=== PATIENT | male | born 1940 | race Caucasian/White ===

== ENCOUNTER → 2025-05-11 | Outpatient (CLI) | payer SELFPAY, OTHER ==
--- NOTE | 2025-05-11 09:00 | PET_ITS ---
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 A preliminary CT study encompassing the Skull base, neck, chest, abdomen, pelvis, and proximal thighs was performed for purposes of attenuation correction and anatomic localization. The proximal thighs were also included. The patient's blood glucose level was 74 mg/dL (allowable range: 50-180 mg/dL). RADIOPHARMACEUTICAL: 13.64 mCi 18F-FDG (Fluorodeoxyglucose F18) IV was injected into he patient. RADIATION DOSE SUMMARY: Effective Dose: Approximately 7 mSv for a standard whole-body PET scan Organ Doses: Varies by organ, with higher doses typically to the bladder, liver, and brain COMPARISON: COMPARISON FROM CT, PET OR OTHER PERTINENT EXAMS: None provided.. FINDINGS: Physiologic uptake: There may be expected metabolic uptake within the brain, tongue and floor of the mouth and larynx/vocal cords, heart, hannah (many normal individuals have hilar uptake in less than 3 nodes with mildly avid hilar nodes less than 2.7 SUV), liver and spleen, system, and GI tract and symmetric muscle uptake. FDG AVID AND NON-AVID LESIONS. Reported avid SUV values (g/mL*) are maximum SUV. NECK: There are no significant neck abnormalities. CHEST: Chest wall- There are no significant chest wall abnormalities. Axilla- There are no significant axillary abnormalities. Lung parenchyma- There are no significant lung parenchyma abnormalities. Mediastinum- There are no significant hilar or mediastinal adenopathy. Pleura- There are no significant pleural abnormalities. Moderate aortic valve calcification is seen. ABDOMEN: A large hypermetabolic mass is seen in the central to right abdomen, measured at approximately 8.0 x 11.6 cm, with SUV max of 14.0. This is highly concerning for malignancy. Also, likely lymph node in the posterior abdominal cavity adjacent (centered on axial image 149) shows hypermetabolic activity and SUV max of 4.0, consistent with associated malignant adenopathy. Stomach- No significant abnormalities. Liver- No significant abnormalities. Spleen- No significant abnormalities. Pancrease- No significant abnormalities. Kidneys- No significant abnormalities. Spine- No significant abnormalities. Mild arterial calcification is otherwise noted; no evidence of abdominal aortic aneurysm. PELVIS: Bowel- Normal physiologic bowel activity is identified. Masses- There are no pelvic masses. Bones- Prominent degenerative changes of the spine are seen, along with thoracic kyphosis. With the use of bone window settings, there are no osteolytic or osteoblastic lesions. There are no FDG avid lesions within the visualized portion of the axial skeleton. PET/PET/CT Tumor Base -Thigh Init IMPRESSION: FDG avid- Large hypermetabolic central to right abdominal mass, highly concerning for mal ignancy. Nearby hypermetabolic lymph known consist with malignant adenopathy. Other: 1. Prominent degenerative changes of the spine, along with thoracic kyphosis. 2. Moderate aortic valve calcification. Please note the low-dose CT scan was performed to facilitate PET image reconstr uction and anatomic localization and does not replace a diagnostic CT. Any diagnostic CT requested and performed at the time of the PET will be reported separately. Reading Location: [address]
--- OUTSIDE RECORDS SUMMARY | 2025-05-11 09:28 | XMS RPT_ITS | CCD ---
Author Organization [facility] Care Team Providers Care Vc++ Developer Name Role Phone Butron JUARES MD Unavailable ENT, JASMIN Unavailable BERLIN Unavailable Unavailable Nitish THOMAS, Esthela Unavailable Unavailable PABLO SCHAFER, TIFFANIE Velazquez Unavailable XIOMY PIÑA Unavailable Unavailable CAMMIE NOVA Unavailable Unavailable MILLIE SCHAFER, ASHELY Sheikh Unavailable Katie Woods RN Unavailable Unavailable Unavailable Unavailable EDUARD PIÑA MD Unavailable JANAY BAUTISTA Attending Unavailable JANAY BAUTISTA Admitting Unavailable JANAY BAUTISTA Primary Care Unavailable Burton JUARES Consulting Unavailable PROVIDER, UNKNOWN Consulting Unavailable PROVIDER, UNKNOWN Consulting Unavailable PROVIDER, UNKNOWN Consulting Unavailable JANAY BAUTISTA Admitting Unavailable JANAY BAUTISTA Primary Care Unavailable JANAY BAUTISTA Attending Unavailable Burton JUARES Consulting Unavailable PROVIDER, UNKNOWN Consulting Unavailable PROVIDER, UNKNOWN Consulting Unavailable PROVIDER, UNKNOWN Consulting Unavailable PACHECO SAWANT DC Primary Care Unavailable PACHECO SAWANT DC Attending Unavailable PACHECO SAWANT DC Admitting Unavailable JAYME COELHO DPM Primary Care Unavailable JAYME COELHO DPM Attending Unavailable JAYME COELHO DPM Admitting Unavailable JAYME COELHO DPM Primary Care Unavailable JAYME COELHO DPM Attending Unavailable JAYME COELHO DPM Admitting Unavailable KORNHAUS, R TIFFANIE Primary Care Unavailable Burton JUARES Attending Unavailable KORJUNEAUS, R TIFFANIE Admitting Unavailable KORNHAUS, R TIFFANIE Primary Care Unavailable Burton JUARES Attending Unavailable KORNHAUS, R TIFFANIE Admitting Unavailable KORNHAUS, R TIFFANIE Attending Unavailable KORNHAUS, Burton MORENO Primary Care Unavailable MOR, Burton MORENO Admitting Unavailable MOR, Burton MORENO Primary Care Unavailable AMYJUNEPASQUALE, Burton MORENO Attending Unavailable MOR, R TIFFANIE Admitting Unavailable MOR, R TIFFANIE Primary Care Unavailable AMYJUNEPASQUALE, Burton MORENO Attending Unavailable AMYVARINDER, R TIFFANIE Admitting Unavailable JANAY BAUTISTA Attending Unavailable JANAY BAUTISTA Admitting Unavailable JANAY BAUTISTA Primary Care Unavailable MOR, Burton TIFFANIE Primary Care Unavailable AMYVARINDER, Burton MORENO Attending Unavailable MOR, Burton MORENO Admitting Unavailable Janay Bautista Referring Unavailable Janay Bautista Attending Unavailable Medications Current Medications Medication Drug Class(es) Dates Sig (Normalized) Sig (Original) CAYENNE FRUIT, 455MG (Oral Capsule) (20 sources) take 1 capsule by mouth once daily CAYENNE FRUIT, 455MG (Oral Capsule) ; 1 daily (455 MG) cranberry preparation 200 mg oral capsule (20 sources) Non-Standardized Food Allergenic Extract, Non-Standardized Plant Allergenic Extract take 1 capsule by mouth once daily Cranberry 200 MG Oral Capsule ; 1 daily (200 MG) Garlic preparation (20 sources) Non-Standardized Food Allergenic Extract take 1 capsule by mouth once daily GARLIC 1500, 1500MG (Oral Capsule) ; 1 daily (1500 MG) Problems Active Problems Problem Classification Problem Date Documented Da te Episodic/Chronic Administrative/social admission (20 sources) Patient encounter status; Translations: [Counseling, unspecified] 03-16-2025 Episodic Deficiency and other anemia (20 sources) Anemia; Translations: [Anemia, unspecified] 03-22-2025 Episodic Deficiency and other anemia (3 sources) Anemia, unspecified; Translations: [Anemia, unspecified] Onset: 5 Episodic Diverticulosis and diverticulitis (20 sources) Diverticulosis of colon (without mention of hemorrhage) Onset: 1 11-29-2011 Chronic Open wounds of head; neck; and trunk (20 sources) Laceration of cheek; Translations: [Laceration without foreign body of right cheek and temporomandibular area, initial encounter] 09-02-2017 Episodic Comment on above: healing. Other connective tissue disease (3 sources) Pain in left leg; Translations: [Pain in left leg] Onset: 5 Episodic Other diseases of kidney and ureters (20 sources) Cyst of kidney; Translations: [Cyst of kidney, acquired] Onset: 1 11-29-2011 Episodic Other gastrointestinal disorders (20 sources) Diarrhea of presumed infectious origin; Translations: [Diarrhea, unspecified] 03-16-2025 Episodic Other gastrointestinal disorders (11 sources) Other specified diseases of intestine; Translations: [Other specified disorders of intestine] Onset: 5 04-06-2025 Episodic Other gastrointestinal disorders (1 source) Intra-abdominal and pelvic swelling, mass and lump, unspecified site; Translations: [Intra-abdominal and pelvic swelling, mass and lump, unspecified site] Onset: 5 Episodic Other gastrointestinal disorders (3 sources) Diarrhea, unspecified; Translations: [Diarrhea, unspecified] Onset: 5 Episodic Other injuries and conditions due to external causes (20 sources) At risk for falls ; Translations: [History of falling] 09-02-2017 Episodic Other male genital disorders (20 sources) H/O: male genital disorder; Translations: [Personal history of other diseases of male genital organs] Onset: 1 09-02-2017 Episodic Comment on above: Stable. Other nutritional; endocrine; and metabolic disorders (20 sources) Weight decreased; Translations: [Abnormal weight loss] 03-16-2025 Episodic Other nutritional; endocrine; and metabolic disorders (3 sources) Abnormal weight loss; Translations: [Abnormal weight loss] Onset: 5 Episodic Other screening for suspected conditions (not mental disorders or infectious disease) (20 sources) Screening status; Translations: [Encounter for screening for diabetes mellitus] 03-06-2012 Episodic Other upper respiratory disease (20 sources) Lesion of nose; Translations: [Other specified disorders of nose and nasal sinuses] Onset: 5 03-02-2015 Episodic Comment on above: Right side; to Enio wright, ENT Residual codes; unclassified (1 source) Edema, unspecified; Translations: [Edema, unspecified] Onset: 5 Episodic Skull and face fractures (20 sources) Closed fracture of zygoma; Translations: [Zygomatic fracture, unspecified side, initial encounter for closed fracture] 09-02-2017 Episodic Sprains and strains (3 sources) Sprain of unspecified ligament of left ankle, initial encounter; Translations: [Sprain of unspecified ligament of left ankle, initial encounter] Onset: Episodic Superficial injury; contusion (20 sources) Contusion of right shoulder; Translations: [Contusion of right shoulder, initial encounter] 09-02-2017 Episodic Comment on above: Fall. Syncope (20 sources) Syncope; Translations: [Syncope and collapse] 09-02-2017 Episodic Unclassified (20 sources) 01/08/14, Bulldozer accident, Frax scapula, C6-7. to Chapo 01-14-2014 Unclassified (20 sources) ER [facility] Onset: 7 09-02-2017 Comment on above: Syncope; Frax R zygo ma, orbit, max sinus, R ribs #5-#8; Admit, Disch 08/21/17 Unclassified (20 sources) LAB DRAW - The labs drawn today include: PSA. The lab was drawn from the right antecubital vein. The lab was ordered by Dr. Juares. 03-17-2025 Unclassified (20 sources) LAB DRAW - The labs drawn today include: CBC, CMP, TSH and other: C-reactive protien, Lipase. The lab was drawn from the right antecubital vein. The lab was ordered by Dr. Juares. Note for LAB DRAW: Stool studies sent to [facility]. 03-17-2025 Unclassified (14 sources) !Patient notification of lab results - Dr. Juares. The test(s) that you had done were/was blood work (Your are markedly anemic (hemoglobin 6.7). I would like to arrange a blood transfusion for you as an outpatient at [facility]. Your thyroid lab suggests the thyroid may be underactive. Please repeat the test in 4 weeks...Your PSA is elevated. I would recommend repeating this in 3 months.). 03-22-2025 Past or Other Problems Problem Classification Problem Date Documented Da te Episodic/Chronic Syncope (20 sources) Syncope 09-02-2017 Unclassified (20 sources) Diarrhea - Note for Diarrhea: Pt has been having diarrhea/loose stools on and off for months. Diarrhea is usually at night and has gotten worse over the last 2 days. No abd pain, nausea or vomiting. Pt has a decreased appetite and feels weak. 03-16-2025 Unclassified (18 sources) [ADDITIONAL REASON] Transition into care - The patient is transitioning into care from an emergency room and a summary of care was reviewed. 09-02-2017 Unclassified (20 sources) Skin Lesion, Facial - Symptoms include growing lesion and non-healing lesion. The condition involves a single lesion. Lesion(s) are located on the right nasal area. Onset was 1 month(s) ago. Note for Facial skin lesion: Has black spot in middle of lesion. Patient tried to squeeze liquid out of it. 02-28-2015 Unclassified (20 sources) Complete Physical - Male 03-06-2012 Unclassified (19 sources) !Patient notification of lab results - Dr. Juares. The test(s) that you had done were/was a test for C. diff. This was negative (normal).. You should call our office if you have any questions. 03-18-2025 Unclassified (3 sources) Transition into care - The patient is transitioning into care from an emergency room and a summary of care was reviewed. 09-02-2017 Unclassified (8 sources) !Patient notification of lab results - Dr. Juares. The test(s) that you had done were/was blood work (Your hemoglobin is up to 8.9. Please follow up to discuss additional testing to determine the cause of the anemia.). You should call our office if you have any questions. 03-26-2025 Unclassified (5 sources) !Patient notification of lab results - Dr. Juares. The test(s) that you had done were/was blood work (Please call to schedule follow up to review the labs and the ultrasound and CT scans.). You should call our office if you have any questions. 03-29-2025 Unclassified (4 sources) Follow up Tests results - Note for Follow up to discuss laboratory test results: Pt was seen for diarrhea. Labs, stool studies, CT abd/pelvis, and U/S abd and pelvic done. Pt also had a blood transfusion. He is taking Imodium and Metamucil which is helping with the diarrhea. 04-06-2025 Results Test Name Value Interpretation Reference Range Facility MR ABDOMEN W //T// W/O CONTR [place] 05-03-2025 MR ABDOMEN W //T// W/O CONTRAST [place] [address] Patient: DORINDA MILLER Phone#: : 1940 Age: 84 Gender: M Pt. Type: Out Account: [id number] Location: [facility] Ordering: JANAY BAUTISTA Exam Date: 05/03/2025/13:40 Family Phys: Charge Code: [id number] Physician: [place] Order #: [id number] Dose#: PROCEDURE: MRI ABDOMEN WITH AND WITHOUT CONTRST COMPARISON: [facility], CT, ABDOMEN/PELVIS W CON, 03/26/2025, 8:56. [facility], US, ABDOMEN COMPLETE, 03/25/2025, 8:09. INDICATIONS: Adrenal mass TECHNIQUE: A comprehensive MRI examination of the abdomen was performed utilizing a variety of imaging planes and imaging parameters to optimize visualization of suspected pathology. Images were obtained both before and after intravenous gadolinium injection. FINDINGS: LIVER: There is a cyst in the left lobe of the liver measuring 2.0 x 1.8 cm. No enlargement, atrophy, or significant focal lesion. BILIARY: Gallbladder is present. No filling defects. PANCREAS: There is pancreatic atrophy. SPLEEN: Normal. No enlargement or focal lesion. KIDNEYS: There is an exophytic solid mass at the upper pole of the right kidney. The mass measures 4.7 x 4.7 x 3.0 cm. On T2 and T1 imaging the mass is nearly uniform in signal and hypointense. There is a peripherally enhancing rim, possibly capsule or pseudocapsule. There is restricted diffusion. The mass is hypovascular with minimal internal enhancement seen on 7 minutes delayed imaging. The posterior contour is mildly lobulated. No dropout on of phase imaging. Right renal vein is patent and demonstrates uniform enhancement. There are 4 cysts in the right kidney, the largest measures 1.7 cm. There 2 cysts in the left kidney, the largest measures 2.5 x 1.5 cm. No hydronephrosis. ADRENALS: Normal. No mass or enlargement. AORTA/VASCULAR: No aortic aneurysm. BOWEL/MESENTERY: Partially imaged large right hemicolon mass measuring at least 9.4 by 8.0 x 8.8 cm. There is heterogeneous internal enhancement. There is restricted diffusion within the mass. The mass is pedunculated, intraluminal and connected to the colon by a thick stalk, series 6, image 34. OTHER: Negative. CONCLUSION: 1. 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 Recommend urology consultation. Continued Report - Page 2 of 2 Patient: DORINDA MILLER Phone#: : 1940 Age: 84 Gender: M Pt. Type: Out Account: [id number] Location: 010 Ordering: JANAY BAUTISTA Exam Date: 05/03/2025/13:40 Family Phys: Charge Code: [id number] Physician: [place] Order #: [id number] Dose#: 2. Large pedunculated intraluminal colonic mass, please refer to comparison CT Dictated by: Jaqueline Yanez MD on 05/03/2025 at 16:02 Approved by: Jaqueline Yanez MD on 05/03/2025 at 16:29 [facility] Final Surgical Pathology Rep [facility] 04-23-2025 Final Surgical Pathology Report . Pathology Reports Accession: Collected Date/Time: Received Date/Time: Pathologist: [id number] 04/19/2025 15:08 EDT 04/21/2025 08:23 EDT LATASHA XIE MD Final Surgical Pathology Report DIAGNOSIS: A. COLON, HEPATIC FLEXURE MASS, BIOPSY: - AT LEAST HIGH-GRADE DYSPLASIA WITHIN TUBULAR ADENOMA - NECROTIC DEBRIS WITH FOCI SUSPICIOUS FOR ADENOCARCINOMA (SEE COMMENT) Comment: The biopsy is mostly composed of necrotic debris. A few intact fragments of colonic tissue show adenoma with high-grade dysplasia and a few foci suspicious for adenocarcinoma. Correlation with clinical and endoscopic findings recommended. See below for MMR results. B. RECTAL POLYP: - TUBULAR ADENOMA DNA Mismatch Repair Biomarker Testing APPLIES TO: Specimen A DNA MISMATCH REPAIR TESTING IMMUNOHISTOCHEMISTRY (IHC) RESULTS FOR MISMATCH REPAIR (MMR) PROTEINS: MLH1 MLH1 RESULT: Intact nuclear expression MSH2 MSH2 RESULT: Intact nuclear expression MSH6 MSH6 RESULT: Intact nuclear expression PMS2 PMS2 RESULT: Intact nuclear expression MISMATCH REPAIR (MMR) INTERPRETATION: No loss of nuclear expression of MMR proteins: No evidence of deficient mismatch repair (low probability of MSI-H) ASSISTANT UNIT FORESTER TUMOR BLOCK(S): A1 COMMENT: [facility] [id number] CLINICAL INFORMATION: MASS OF HEPATIC FLEXURE OF COLON SPECIMEN: A HEPATIC FLEXURE MASS B RECTAL POLYP GROSS DESCRIPTION: All parts labelled with patient name and [id number] A. Received in formalin labeled hepatic flexure mass are multiple avalos-brown tissue fragments aggregating 1.5 x 0.5 x 0.4 cm greatest dimension. Smallest fragments may not survive processing. TS-1 B. Received in formalin labeled rectal polyp are 2 avalos-brown tissue fragments measuring 0.3 x 0.2 to 0.5 x 0.4 cm greatest dimension. TS-1 Bev Joyner, Grossing Packaging Sales Consultant/ Dr. Mihai Milligan, Pathologist Performed by Bev Joyner MICROSCOPIC DESCRIPTION: The microscopic examination is performed, except in the case of Gross Only. Pathology Reports Accession: Collected Date/Time: Received Date/Time: Pathologist: [id number] 04/19/2025 15:08 EDT 04/21/2025 08:23 EDT LATASHA XIE MD Verified by Pathology Report verified by [facility] LATASHA XIE Sign out Date: 04/23/2025 08:24 Performing Lab: [facility], [address] [place] [address] Pathology Dept Disclaimer If ancillary studies were utilized, the following Laboratory Developed Test (LDT) disclaimer will apply: Under CLIA requirements, [facility] is qualified to perform high complexity testing. For all ancillary stains, positive and negative controls stain appropriately. Performance characteristics of immunohistochemical and chromogenic in-situ hybridization tests have been determined by [facility]. These tests are used for clinical purposes, They should not be regarded as investigational or for research. Normal [facility] CEA [CCL]on 04-15-2025 CEA 5.5 ng/mL High <=2.9 [facility] Comment on above: Result Comment: Carc inoembryonic antigen test is used as an aid in monitoring response to treatment or recurrence in patients with established colorectal, breast, lung, prostatic, pancreatic, and ovarian carcinomas. Clinical correlation is required. The Carcinoembryonic antigen test was performed using the [employer] DXI paramagnetic particle chemiluminescent immunoassay method. Results obtained with different assay methods or kits cannot be used interchangeably. [facility] [address] [place] [id number] Lenny Donohue III, M.D. [id number] Performed By: #### 2 35566 #### [facility],[address] [place], [place] [id number] CA 19-9 [CCL]on 04-14-2025 CA 19-9 18.0 U/mL Normal <36.0 [facility] Comment on above: Result Comment: [facility] er antigen 19-9 test is used as an aid in monitoring response to treatment or recurrence in patients with established pancreatic, hepatobiliary, or gastrointestinal malignancies. Clinical correlation is required. The CA 19-9 Antigen test was performed using the [employer] DXI paramagnetic particle chemiluminescent immunoassay method. Results obtained with different assay methods or kits cannot be used interchangeably. [address] [address] Lenny Donohue III, M.D. [id number] Performed By: #### 2 81647 #### [facility],[address] [place] [address] BB TYPE & SCREENon ABO A Normal [facility] Comment on above: Performed By: #### 2 85024 #### [facility],[address] [place] [address] ANTIBODY SCR Negative Normal [facility] Comment on above: Performed By: #### 2 66446 #### [facility],[address] [place] [address] BB TYPE & SCREEN Normal [facility] Comment on above: Result Comment: TYPE , Rh, AND SCREEN Performed By: #### 2 80795 #### [place] [address] Rh Nom (Bld) Positive Normal [facility] Comment on above: Performed By: #### 2 64339 #### [facility],[address] [place], [place] [id number] CBC + DIFFon 04-13-2025 Baso # 0.05 x10EE3/UL Normal 0.00 - 0.10 [facility] Comment on above: Performed By: #### 2 31000 #### [facility],[address] [place] [address] Basophils/100 WBC (Bld) 0.5 % Normal 0.0 - 2.0 [facility] Comment on above: Performed By: #### 2 59847 #### [facility],[address] [place] [address] CBC + DIFF Normal [facility] Comment on above: Result Comment: CBC- COMPLETE BLOOD COUNT Performed By: #### 2 18052 #### [facility],[address] [place] [address] CELL COUNT 100 Normal [facility] Comment on above: Performed By: #### 2 52643 #### [facility],[address] [place] [address] EO # 0.08 x10EE3/UL Normal 0.00 - 0.50 [facility] Comment on above: Performed By: #### 2 20670 #### [facility],[address] [place] [address] Eosinophils/100 WBC (Bld) 0.9 % Normal 0.0 - 7.0 [facility] Comment on above: Performed By: #### 2 00733 #### [facility],[address] [place] [address] Erythrocyte distribution width (RBC) [Ratio] 19.3 % High 12.0 - 15.6 [facility] Comment on above: Performed By: #### 2 20059 #### [place] [address] Hematocrit (Bld) [Volume fraction] 25.1 % Low 40.0 - 52.0 [facility] Comment on above: Performed By: #### 2 39332 #### [facility],[address] [place], [place] [id number] Hemoglobin (Bld) [Mass/Vol] 8.1 g/dL Low 13.0 - 17.5 [facility] Comment on above: Performed By: #### 2 55292 #### [facility],[address] [place], [place] [id number] Lymph # 1.08 x10EE3/UL Normal 0.80 - 2.80 [facility] Comment on above: Performed By: #### 2 70155 #### [facility],[address] [place], [place] [id number] Lymphocytes/100 WBC (Bld) 12.2 % Low 20.0 - 45.0 [facility] Comment on above: Performed By: #### 2 70479 #### [facility],[address] [place], [place] [id number] Lymphocytes/100 WBC (Bld) 11 % Low 20 - 45 [facility] Comment on above: Performed By: #### 2 19340 #### [facility],[address] [place] [address] MANUAL DIFF SEE BELOW Normal [facility] Comment on above: Performed By: #### 2 81775 #### [facility],[address] [place] [address] MCH (RBC) [Entitic mass] 23 pg Low 27 - 33 [facility] Comment on above: Performed By: #### 2 82867 #### [facility],[address] [place] [address] MCHC 32 X10 3 Normal 32 - 36 [facility] Comment on above: Performed By: #### 2 84559 #### [facility],[address] [place] [address]858 MCV (RBC) [Entitic vol] 72 fL Low 81 - 98 [facility] Comment on above: Performed By: #### 2 19642 #### [facility],[address] [place] [address] MICROCYTES 2+ Normal [facility] Comment on above: Performed By: #### 2 37391 #### [facility],[address] [place] [address] Holmes # 0.61 x10EE3/UL Normal 0.20 - 1.00 [facility] Comment on above: Performed By: #### 2 20501 #### [facility],[address] [place] [address] MONOS 7 % Normal 0 - 10 [facility] Comment on above: Performed By: #### 2 55987 #### [facility],[address] [place] [address] MONOS % 6.9 % Normal 0.0 - 10.0 [facility] Comment on above: Performed By: #### 2 98765 #### [facility],[address] [place] [address]263 Morphology Oni (Bld) [Interp] SEE BELOW Normal [facility] Comment on above: Performed By: #### 2 08560 #### [facility],[address] [place] [address]75 Neut # 7.04 x10EE3/UL Normal 1.50 - 7.10 [facility] Comment on above: Performed By: #### 2 37255 #### [facility],[address] [place] [address]959 Neutrophils/100 WBC (Bld) 79.5 % High 46.0 - 76.0 [facility] Comment on above: Performed By: #### 2 06393 #### [facility],[address] [place] [address]48[address] PLATELET 366 x10EE3/UL Normal 150 - 450 [facility] Comment on above: Performed By: #### 2 45105 #### [facility],[address] [place] [address] 13864 Platelet mean volume (Bld) [Entitic vol] 6.4 fL Normal 6.4 - 10.5 [facility] Comment on above: Result Comment: AUTO MATED DIFFERENTIAL Performed By: #### 2 19065 #### [facility],[address] [place] [address]885 PLT EST NORMAL Normal [facility] Comment on above: Performed By: #### 2 45582 #### [facility],[address] [place] [address] 00951 RBC 3.49 x 10EE6/UL Low 4.50 - 6.00 [facility] Comment on above: Performed By: #### 2 61541 #### [facility],[address] [place] [address] SEGS 82 % High 46 - 76 [facility] Comment on above: Performed By: #### 2 10930 #### [facility],[address] [place] [address] 59598 WBC 8.9 x 10EE3/UL Normal 4.5 - 10.8 [facility] Comment on above: Performed By: #### 2 84099 #### [facility],[address] [place] [address] Other FEW LARGE PLATELETS Normal [facility] Comment on above: Performed By: #### 2 45170 #### [facility],[address] [place], [place] [id number] CHEST 2 VIEWSon 04-13-2025 CHEST 2 VIEWS [place] [address] Patient: DOIRNDA MILLER Phone#: : 1940 Age: 84 Gender: M Pt. Type: Out Account: [id number] Location: [facility] Ordering: JANAY BAUTISTA Exam Date: 04/13/2025/9:58 Family Phys: Charge Code: [id number] Physician: Maunabo Order #: [id number] Dose#: PROCEDURE: X-RAY CHEST 2 VIEWS COMPARISON: [facility], XR, CHEST AP, 08/20/2017, 10:44. INDICATIONS: Mass of hepatic flexure of colon. FINDINGS: LUNGS: Normal. No significant pulmonary parenchymal abnormalities. VASCULATURE: Normal. Unremarkable pulmonary vasculature. CARDIAC: Normal. No cardiac silhouette abnormality or cardiomegaly. MEDIASTINUM: The aorta is ectatic. Calcification is present at the arch PLEURA: Normal. No effusion or pleural thickening. BONES: Normal. No fracture or visible bony lesion. OTHER: Negative. CONCLUSION: No acute disease. No significant change has occurred. Dictated by: Isabel Montero MD on 04/13/2025 at 11:20 Approved by: Isabel Montero MD on 04/13/2025 at 11:21 Normal [facility] CMP with eGFRon 04-13-2025 AGE 84 years Normal [facility] Comment on above: Performed By: #### 2 96747 #### [facility],[address] [place] [address] 55131 Albumin [Mass/Vol] 1.5 g/dL Low 3.4 - 5.0 [facility] Comment on above: Performed By: #### 2 39758 #### [facility],[address] [place] [address] 54117 Albumin/Globulin [Mass ratio] 0.3 {ratio} Low 0.9 - 1.6 [facility] Comment on above: Performed By: #### 2 99698 #### [facility],[address] [place] [address] 21266 ALK PHOS 82 U/L Normal 46 - 116 [facility] Comment on above: Performed By: #### 2 08096 #### [facility],[address] [place] [address] 89445 ALT [Catalytic activity/Vol] 18 U/L Normal 16 - 63 [facility] Comment on above: Performed By: #### 2 88309 #### [facility],[address] [place] [address] 06385 Anion gap [Moles/Vol] 9 mmol/L Low 10 - 20 [facility] Comment on above: Performed By: #### 2 29628 #### [facility],[address] [place] [address] 12571 AST [Catalytic activity/Vol] 20 U/L Normal 15 - 37 [facility] Comment on above: Performed By: #### 2 78312 #### [facility],[address] [place] [address] 79296 B/C RATIO 19 ratio Normal 0 - 30 [facility] Comment on above: Performed By: #### 2 68915 #### [facility],[address] [place] [address] 38978 Bilirubin [Mass/Vol] 0.2 mg/dL Normal 0.2 - 1.0 [facility] Comment on above: Performed By: #### 2 76209 #### [facility],[address] [place] [address] 29055 Calcium [Mass/Vol] 7.9 mg/dL Low 8.5 - 10.1 [facility] Comment on above: Performed By: #### 2 00788 #### [facility],[address] [place] [address] 65731 Chloride [Moles/Vol] 103 mmol/L Normal 98 - 107 [facility] Comment on above: Performed By: #### 2 66740 #### [facility],[address] [place] [address] 17252 CMP with eGFR Normal [facility] Comment on above: Result Comment: COMP REHENSIVE METABOLIC PANEL Performed By: #### 2 62554 #### [facility],[address] [place] [address] 95643 CO2 [Moles/Vol] 27.3 mmol/L Normal 21.0 - 32.0 [facility] Comment on above: Performed By: #### 2 27536 #### [facility],[address] [place] [address] 21254 Creatinine [Mass/Vol] 1.05 mg/dL Normal 0.70 - 1.30 [facility] Comment on above: Performed By: #### 2 03674 #### [facility],[address] [place] [address] 63381 GFR/1.73 sq M.predicted among non-blacks MDRD (S/P/Bld) [Vol rate/Area] mL/min/{1.73_m2} Normal 60 - 999 [facility] Comment on above: Performed By: #### 2 74333 #### [facility],[address] [place] [address] 47781 Result Comment: ACCO RDING TO THE NATIONAL KIDNEY DISEASE EDUCATION PROGRAM(NKDE), A NORMAL eGFR IS A VALUE GREATER THAN OR EQUAL TO 60 ML/MIN/1.73 SQ METERS. CHRONIC KIDNEY DISEASE: <60mL/MIN/1.73 SQ METERS KIDNEY FAILURE: <15mL/MIN/1.73 SQ METERS THIS TEST SHOULD ONLY BE USED FOR PATIENTS 18 YEARS OF AGE AND OLDER. Globulin (S) [Mass/Vol] 4.3 g/dL High 1.5 - 3.8 [facility] Comment on above: Performed By: #### 2 61599 #### [facility],[address] [place] [address] 12250 Glucose [Mass/Vol] 75 mg/dL Normal 74 - 106 [facility] Comment on above: Performed By: #### 2 17585 #### [facility],[address] [place] [address] 15346 Potassium [Moles/Vol] 3.5 mmol/L Normal 3.5 - 5.1 [facility] Comment on above: Performed By: #### 2 87125 #### [facility],[address] [place] [address] 14955 Protein [Mass/Vol] 5.8 g/dL Low 6.4 - 8.2 [facility] Comment on above: Performed By: #### 2 41964 #### [facility],[address] [place] [address] 26428 Sodium [Moles/Vol] 136 mmol/L Normal 136 - 145 [facility] Comment on above: Performed By: #### 2 66734 #### [place] [id number] Urea nitrogen [Mass/Vol] 20 mg/dL High 7 - 18 [facility] Comment on above: Performed By: #### 2 50345 #### [place] [id number] LIPASEon 04-13-2025 Lipase [Catalytic activity/Vol] 15.0 U/L Normal 15.0 - 78.0 [facility] Comment on above: Result Comment: *PLE ASE NOTE THAT RANGES FOR LIPASE HAVE CHANGED OF 11/29/23 DUE TO AN ASSAY UPDATE BY THE NEEDLE PUNCH MACHINE OPERATOR HELPER.THE NEW ASSAY RANGE IS 6-250 U/L, WITH A REFERENCE RANGE OF 16-77 U/L. Performed By: #### 2 53420 #### [address] [address] [address] ABDOMEN/PELVIS [facility] 2024 CT ABDOMEN/PELVIS [place] [address] Patient: DORINDA MILLER Phone#: : 1940 Age: 84 Gender: M Pt. Type: Out Account: [id number] Location: [facility] Ordering: TIFFANIE JUARES Exam Date: 03/26/2025/8:56 Family Phys: Charge Code: [id number] Physician: Maunabo Order #: [id number] Dose#: 19.40 mGy PROCEDURE: CT ABDOMEN/PELVIS WITH CONTRAST COMPARISON: None. INDICATIONS: Weight loss. TECHNIQUE: After obtaining the patient's consent, CT images were created with non-ionic intravenous contrast and oral contrast material. All CT scans at this facility use dose modulation, iterative reconstruction, and/or weight based dosing when appropriate to reduce radiation dose to as low as reasonably achievable. IV CONTRAST: Visipaque 320,80ml TOTAL DOSE: 19.40 CTDIvol(mGy) FINDINGS: LIVER: An 18 millimeter right hepatic cyst is present. No enlargement, atrophy, abnormal density, or significant focal lesion. BILIARY: Normal. No visible dilatation or calcification. PANCREAS: Normal. No lesion, fluid collection, ductal dilatation, or atrophy. SPLEEN: Normal. No enlargement or focal lesion. KIDNEYS: Right renal cysts are present. Interposed between the upper pole of the right kidney and adrenal gland is a 4.5 x 5.1 x 3.1 centimeter hypodense mass. This may arise from the right adrenal gland. Left renal cyst is present. ADRENALS: Normal. No mass or enlargement. AORTA/VASCULAR: Normal. No aneurysm or dissection. RETROPERITONEUM: Normal. No mass or adenopathy. BOWEL/MESENTERY: In the hepatic flexure is a probable polypoid intraluminal mass measuring 11.0 x 9.2 x 8.8 centimeters. There is no evidence of obstruction proximally. Moderate stool retention is present distally. ABDOMINAL WALL: Normal. No mass or hernia. URINARY BLADDER: Impression on the base of the bladder by an enlarged prostate is present. PELVIC NODES: Normal. No adenopathy. PELVIC ORGANS: The prostate is enlarged measuring 5.1 x 6.2 x 4.6 centimeters. The superior right lateral margin is mildly lobulated. Continued Report - Page 2 of 2 Patient: DORINDA MILLER Phone#: : 1940 Age: 84 Gender: M Pt. Type: Out Account: [id number] Location: [facility] Ordering: TIFFANIE JUARES Exam Date: 03/26/2025/8:56 Family Phys: Charge Code: [id number] Physician: Maunabo Order #: [id number] Dose#: 19.40 mGy BONES: Mild degenerative changes of the spine are present. No bony lesion or fracture. LUNG BASES: Coronary artery calcification is present.. No visible pulmonary or pleural disease. OTHER: Negative. CONCLUSION: 1. Brown centimeter probable polypoid mass within the bowel at the hepatic flexure. Moderate stool retention distally. 2. The prostate is enlarged impresses on the base of the bladder. 3. Right hepatic cyst. Dictated by: Isabel Montero MD on 03/26/2025 at 11:33 Approved by: Isabel Montero MD on 03/26/2025 at 11:45 Normal [facility] CBC + DIFFon 03-25-2025 Baso # 0.03 x10EE3/UL Normal 0.00 - 0.10 [facility] Comment on above: Performed By: #### 2 73725 #### [facility],[address] [place] [address] 99752 Basophils/100 WBC (Bld) 0.3 % Normal 0.0 - 2.0 [facility], [facility].; [facility] CENTERJosey Ellis [employer] [facility], [place]. Comment on above: Performed By: #### 2 27113 #### [facility],[address] [place] [address] 86696 CBC + DIFF Normal [facility] Comment on above: Result Comment: CBC- COMPLETE BLOOD COUNT Performed By: #### 2 31218 #### [address] [address] EO # 0.06 x10EE3/UL Normal 0.00 - 0.50 [facility] Comment on above: Performed By: #### 2 25988 #### [address] [address] Eosinophils/100 WBC (Bld) 0.7 % Normal 0.0 - 7.0 [facility], [place].; [facility], [place]. Comment on above: Performed By: #### 2 50790 #### [place] [id number] Erythrocyte distribution width (RBC) [Ratio] 19.4 % High 12.0 - 15.6 [facility], [facility].; [facility], [place]. Comment on above: Performed By: #### 2 04584 #### [facility],[address] [place], [place] [id number] Hematocrit (Bld) [Volume fraction] 27.7 % Low 40.0 - 52.0 [facility], [place].; [facility] CenterBio[facility] [place]. Comment on above: Performed By: #### 2 11422 #### [place] [address] Hemoglobin (Bld) [Mass/Vol] 8.9 g/dL Low 13.0 - 17.5 [facility].; [facility], [place]. Comment on above: Performed By: #### 2 52867 #### [place] [address] Lymph # 1.10 x10EE3/UL Normal 0.80 - 2.80 [facility] Comment on above: Performed By: #### 2 93758 #### [place] [address] Lymphocytes/100 WBC (Bld) 12.3 % Low 20.0 - 45.0 [facility].; [facility], [facility]. Comment on above: Performed By: #### 2 46855 #### [place] [address] MANUAL DIFF N/A Normal [facility].; [facility], [place]. Comment on above: Performed By: #### 2 42192 #### [place] [address] MCH (RBC) [Entitic mass] 23 pg Low 27 - 33 [facility].; [facility] CenterIconfinder. Comment on above: Performed By: #### 2 06710 #### [place] [address] MCHC 32 X10 3 Normal 32 - 36 [facility] Comment on above: Performed By: #### 2 65304 #### [place] [address] MCV (RBC) [Entitic vol] 72 fL Low 81 - 98 [facility].; [facility] CenterIconfinder. Comment on above: Performed By: #### 2 73612 #### [facility],[address] [place] [address] Holmes # 0.66 x10EE3/UL Normal 0.20 - 1.00 [facility] Comment on above: Performed By: #### 2 36972 #### [facility],[address] [place] [address] MONOS % 7.5 % Normal 0.0 - 10.0 [facility] Comment on above: Performed By: #### 2 45913 #### [place] [address] Morphology Oni (Bld) [Interp] N/A Normal [facility] CenterBio[facility].; [facility] CenterIconfinder. Comment on above: Performed By: #### 2 36001 #### [facility],[address] [place] [address] Neut # 7.06 x10EE3/UL Normal 1.50 - 7.10 [facility] Comment on above: Performed By: #### 2 05819 #### [place] [address] Neutrophils/100 WBC (Bld) 79.3 % High 46.0 - 76.0 [facility] Center[facility].; [facility] Center[facility]. Comment on above: Performed By: #### 2 73995 #### [facility],[address] [place] [address] PLATELET 325 x10EE3/UL Normal 150 - 450 [facility] Comment on above: Performed By: #### 2 32735 #### [place] [address] Platelet mean volume (Bld) [Entitic vol] 6.4 fL Normal 6.4 - 10.5 [facility] Center[facility].; [facility], Inc[facility] Comment on above: Result Comment: AUTO MATED DIFFERENTIAL Performed By: #### 2 37736 #### [place] [address] RBC 3.86 x 10EE6/UL Low 4.50 - 6.00 [facility] Comment on above: Performed By: #### 2 69605 #### [facility],[address] [place] [address] WBC 8.9 x 10EE3/UL Normal 4.5 - 10.8 [facility] Comment on above: Performed By: #### 2 68102 #### [place] [address] Laboratory - Hematology and Cell countson 03-25-2025 Basophils (Bld) [#/Vol] 0.03 {x10EE3/UL} Normal 0.00 - 0.10 {x10EE3/UL} [facility]Chat[facility], [facility].; [facility] [employer] [facility] Eosinophils (Bld) [#/Vol] 0.06 {x10EE3/UL} Normal 0.00 - 0.50 {x10EE3/UL} [employer] [facility].; [facility] CENTERJosey Ellis [employer] [facility] [employer] [facility] Lymphocytes (Bld) [#/Vol] 1.10 {x10EE3/UL} Normal 0.80 - 2.80 {x10EE3/UL} [facility] [employer] [facility].; [place] [facility] [employer] [facility] MCHC (RBC) [Mass/Vol] 32 {X10_3} Normal 32 - 3 6 {X10_3} [employer] [facility].; [facility] [employer] [facility] Monocytes (Bld) [#/Vol] 0.66 {x10EE3/UL} Normal 0.20 - 1.00 {x10EE3/UL} [employer] [facility].; [place] [address] [facility] [employer] [facility] Monocytes/100 WBC (Bld) 7.5 % Normal 0.0 - 10.0 % [facility] Center[facility].; [facility], [place]. Neutrophils (Bld) [#/Vol] 7.06 {x10EE3/UL} Normal 1.50 - 7.10 {x10EE3/UL} [facility] CenterBio[facility].; [facility], [place]. Platelets (Bld) [#/Vol] 325 {x10EE3/UL} Normal 150 - 450 {x10EE3/UL} [facility] Center[facility].; [facility], [facility]. RBC (Bld) [#/Vol] 3.86 {x_10EE6/UL} Abnormal 4.50 - 6.00 {x_10EE6/UL} [facility] Center[facility].; [facility], [place]. WBC (Bld) [#/Vol] 8.9 {x_10EE3/UL} Normal 4.5 - 10.8 {x_10EE3/UL} [facility] CenterI[facility].; [facility], [place]. No Panel Informationon 03-25 CBC + DIFF Normal [facility] CenterI[facility].; [facility] CenterIconf[facility]. US ABD COMPLETEon 03-25-2025 [place] [address] Patient: DORINDA MILLER Phone#: : 1940 Age: 84 Gender: M Pt. Type: Out Account: [id number] Location: [facility] Ordering: TIFFANIE JUARES Exam Date: 03/25/2025/8:09 Family Phys: Charge Code: [id number] Physician: Maunabo Order #: [id number] Dose#: PROCEDURE: ABDOMEN COMPLETE ULTRASOUND COMPARISON: None. INDICATIONS: Weight loss TECHNIQUE: High resolution sonographic examination was performed of the abdomen. FINDINGS: LIVER: There is a cyst in the right lobe of the liver measuring 1.8 x 1.5 x 1.7 cm. Normal size and echotexture. No significant masses. BILIARY: Layering sludge in the gallbladder. Common bile duct measures 0.3 cm. Normal appearing gallbladder and biliary tree. Gallbladder wall measures 0.1 cm in thickness PANCREAS: Normal. No visible mass, abnormal atrophy, or ductal dilatation. SPLEEN: Normal. Normal size and echotexture. Spleen measures 9.4 x 8.8 x 6.4 cm. KIDNEYS: Increased renal parenchymal echogenicity. Right upper pole anechoic renal cyst measuring 1.3 x 1.6 x 1.5 cm. Right upper pole renal lesion measuring 2.9 x 3.1 x 4.2 cm, possibly representing a complex renal cyst. Left lower pole cyst measures 1.3 x 1.0 x 1.3 cm. Right kidney measures 9.6 x 4.9 x 6.1 cm. Left kidney measures 9.4 x 6.1 x 4.5 cm. AORTA/VASCULAR: Normal. No aneurysm. Proximal aorta: 1.7 x 1.7 cm Mid aorta: 1.8 x 2.1 cm Distal aorta: 1.9 x 2.3 cm Right proximal iliac: 1.0 x 1.3 cm Left proximal iliac 1.1 x 1.1 cm OTHER: There is a mass in the anterior abdominal wall. The mass measures 10.4 x 7.4 x 9.6 cm. The mass is heterogeneous in echogenicity and contains internal blood flow. There appears to be a stalk connecting to the mass to deeper abdominal wall structure though origin not identified by ultrasound. CONCLUSION: 1. Mass in the anterior abdominal wall. Recommend CT abdomen pelvis with IV for further characterization. 2. Possible complex cyst of the right renal upper pole, this can also be evaluated at the time of CT. [place] [address] Patient: DORINDA MILLER Phone#: : 1940 Age: 84 Gender: M Pt. Type: Out Account: [id number] Location: [facility] Ordering: TIFFANIE JUARES Exam Date: 03/25/2025/8:09 Family Phys: Charge Code: [id number] Physician: Maunabo Order #: [id number] Dose#: Dictated by: Jaqueline Yanez MD on 03/25/2025 at 10:51 Approved by: Jaqueline Yanez MD on 03/25/2025 at 11:02 [facility] US PELVIC (NON OB) LIMITEDon 03-25-2025 PELVIC (NON OB) LIMITED [place] [address] Patient: DORINDA MILLER Phone#: : 1940 Age: 84 Gender: M Pt. Type: Out Account: [id number] Location: [facility] Ordering: TIFFANIE REYESJUNEPASQUALE Exam Date: 03/25/2025/12:40 Family Phys: Charge Code: [id number] Physician: Maunabo Order #: [id number] Dose#: PROCEDURE: PELVIC (NON OB) LIMITED ULTRASOUND COMPARISON: None. INDICATIONS: Weight loss FINDINGS: PROSTATE: The prostate impresses on the base of bladder and measures 5.9 x 3.7 x 4.5 centimeters. The superior right lateral margin is lobulated. LYMPH NODES: Normal. No adenopathy. BLADDER: Prostate impresses on the base of the bladder. Prevoid bladder volume is 84 milliliters. Postvoid volume is 11 milliliters. OTHER: Negative. CONCLUSION: 1. The prostate impresses on the base of bladder. Postvoid volume is 11 milliliters. Dictated by: Isabel Montero MD on 03/26/2025 at 12:07 Approved by: Isabel Montero MD on 03/26/2025 at 12:09 [facility] BB CROSSMATCH 1ST UNITon BB CROSSMATCH 1ST UNIT [facility] Comment on above: Result Comment: [id number] REQUEST FOR BLOOD OR BLOOD COMPONENT UNIT #_1 03/23/25.2252.GE . Performed By: #### 2 28231 #### [facility],[address] [place] [address] Donor's ABO/Rh Positive [facility] Comment on above: Performed By: #### 2 39258 #### [facility],[address] [place] [address] Donor's Unit No [id number] [facility], [facility].; [facility], [facility]. Work Phone: Comment on above: Performed By: #### 2 93786 #### [facility],[address] [place] [address] Pt's ABO/Rh Positive [facility] Comment on above: Performed By: #### 2 74385 #### [place] [address] Unit Exp Date 04/09/2025 [facility], [facility].; [facility], [facility]. Work Phone: Comment on above: Performed By: #### 2 92984 #### [facility],[address] [place] [address] BB CROSSMATCH ADDITIONAL UNI Ton 03-23-2025 BB CROSSMATCH ADDITIONAL UNIT Normal [facility] Comment on above: Result Comment: [id number] REQUEST FOR BLOOD OR BLOOD COMPONENT UNIT #_2 03/23/25.2254.GE . Performed By: #### 2 10937 #### [facility],[address] [place], [place] [address] Compatibility COMPATIBLE [facility], [facility].; [facility], [facility]. Work Phone: Comment on above: Result Comment: { Pt 's BB ID # [id number] Transfusion comments I have confirmed the above required items at the time of unit issue: Issuing Tech ........................ Date/Time .................. === PT ID VERIFIED AT BEDSIDE PRIOR TO BLOOD ADMINISTRATION PT ID VERIFIED AND DOCUMENTED BY TWO NURSES PT Name same on unit tag,BB ID Bracelet, and blood administration form Verify PT name by asking to state name(if poss.) Pt's MR Number on unit tag is the same as BB ID Bracelet and admin form Verify Pt's ABO Group/Rh from admin form, and unit tag Verify unit number from unit and blood administration form Informed consent obtained? I have checked the above listed items and there were no discrepancies #1 RN signature .................... Date/Time .................. #2 RN signature .................... Date/Time .................. === RECORD OF PATIENT'S RESPONSE Date/Time Prior to transfusion ......... Start of transfusion ......... 15 minute check ......... Blood complete/DC ......... SITE: Central Vein Peripheral Vein Central Artery Peripheral Artery AMOUNT GIVEN (1/4, 1/2, 3/4 or full unit) WAS THERE A REACTION TO THE TRANSFUSION? Yes... No... If so, notify the physician and the lab immediately, and initiate a Blood Transfusion Reaction form. COMPLETE FORMS ENTIRELY. KEEP CARDBOARD COPY ATTACHED TO UNIT. PLACE WHITE COPY ON CHART. RETURN YELLOW COPY TO LAB E[facility] UPON COMPLETION OF TRANSFUSION. Performed By: #### 2 55269 #### [facility],[address] [place] [address] Performed By: #### 2 57576 #### [facility],[address] [place] [address] Component [facility], [facility].; [facility], [facility]. Work Phone: Comment on above: Performed By: #### 2 72644 #### [facility],[address] [place] [address] Performed By: #### 2 60237 #### [facility],[address] [place] [address] Donor's ABO/Rh Positive [facility] Comment on above: Performed By: #### 2 82721 #### [facility],[address] [place] [address] Donor's Unit No [id number] [facility], [facility].; [facility] CenterBioTe[facility]. Work Phone: Comment on above: Performed By: #### 2 84441 #### [facility],[address] [place] [address] Pt's ABO/Rh Positive [facility] Comment on above: Performed By: #### 2 06563 #### [facility],[address] [place] [address] Unit Exp Date 04/17/2025 [facility] [place].; [facility] Work Phone: Comment on above: Performed By: #### 2 76446 #### [facility],[address] [place] [address] BB TYPE & SCREENon ABO A [facility] Comment on above: Performed By: #### 2 66182 #### [facility],[address] [place] [address] ANTIBODY SCR Negative Normal [facility] Comment on above: Performed By: #### 2 91211 #### [facility],[address] [place] [address] BB TYPE & SCREEN [facility] Comment on above: Result Comment: TYPE , Rh, AND SCREEN Performed By: #### 2 88933 #### [facility],[address] [place] [address] Rh Nom (Bld) Positive [facility] CorporationChat[employer]Block [facility]Iconfinder.; [facility] CENTERProcyrionEK [address] [facility] [employer]. Work Phone: Comment on above: Performed By: #### 2 86830 #### [facility],[address] [place] [address] Laboratory - Blood bankon ABO and Rh group Nom (Bld BPU) Positive [employer] [facility]bergChatterBlock [facility]Iconfinder.; [facility]ENTERJosey Ellis [employer] [facility] [employer]. Work Phone: ABO group Nom (Bld) A [employer] [facility]lenbergChatterBlock [facility]conf[facility].; [place] [address] [facility] [employer]. Work Phone: ABO group Nom (Bld) Positive [employer] [facility] [facility].; [facility] CENTERJosey Ellis [employer] [address] [facility] [employer]. Work Phone: Blood group antibody screen Ql Negative [facility] [employer] [facility].; [facility] CENTERJosey Ellis [employer] [address] [facility] [employer]. Work Phone: No Panel Informationon 03-23 BB CROSSMATCH 1ST UNIT [facility]. Work Phone: BB CROSSMATCH ADDITIONAL UNIT [facility], [facility]. Work Phone: BB TYPE [facility]. Work Phone: OVA & PARASITE EXAM [CCL]on 03-22-2025 OVA AND PARASITE EXAM See Below [facility] Comment on above: Result Comment: OVA AND PARASITE EXAM No Parasites Seen This test can not identify the presence of Cryptosporidium, Cyclospora or Cystoisospora (order CRYSPO); Microsporidia (order MICSPO) or consider ordering STGIPI (molecular test to detect common infectious causes of diarrhea). A single negative test result does not rule out a parasitic infection. Due to intermittent shedding of parasites, it is recommended that three specimens collected over a 7 day period are submitted to improve detection sensitivity. SOURCE: Stool [facility] [address] [place] [address] Lenny Donohue III, M.D. [id number] Performed By: #### [id number] #### [place] [id number] MR ANKLE W/O LTon 03-18-2025 MR ANKLE W/O LT [place] [id number] Patient: DORINDA MILLER Phone#: : 1940 Age: 84 Gender: M Pt. Type: Out Account: [id number] Location: [facility] Ordering: JAYME COELHO Exam Date: 03/18/2025/11:14 Family Phys: Charge Code: [id number] Physician: [place] Order #: [id number] Dose#: PROCEDURE: MRI ANKLE LT WITHOUT CONTRAST COMPARISON: None. INDICATIONS: Left ankle sprain TECHNIQUE: A complete multi-planar examination was performed without contrast. FINDINGS: LATERAL LIGAMENTS AND SOFT TISSUE STRUCTURES TALOFIBULAR: Normal. CALCANEOFIBULAR: The calcaneal fibular ligament is thickened and hyperintense in signal, series 3 and 4, images 15. The ligament is wavy and contour consistent with spurring. TIBIOFIBULAR: Normal. PERONEAL TENDONS:There is tear of the peroneus brevis tendon. Portions of the tendon are identified distally, series 4 image 2, and proximally, image 35 however no segment of tendon appears complete and intact. The peroneus longus tendon is thickened, series 4, image 11. There is hyperintense signal within the tendon as it passes inferior to the calcaneus. MEDIAL LIGAMENTS AND SOFT TISSUE STRUCTURES DELTOID COMPLEX: Normal. SPRING LIGAMENT: Normal. TARSAL TUNNEL: There is fluid surrounding the tibialis posterior, flexor digitorum longus and flexor hallucis longus tendons consistent with tenosynovitis, series 4, image 20. The posterior tibial nerve appears enlarged, series 3, image 32. FLEXORS: Normal. OTHER TENDONS EXTENSORS: Normal. ACHILLES: Minimal nonspecific hyperintense signal within the Achilles tendon, series 6 image 13. PLANTAR FASCIA: Normal. No tear or surrounding soft tissue edema to suggest fasciitis. SINUS TARSI: There is edema throughout the sinus tarsi, series 6, image 15. BONES: There is heterogeneous edema throughout the talus without focal fracture, series 6, image 16. Heterogeneity of the marrow of the anterior process of the calcaneus. Subchondral cysts in the lateral cuneiform. There is an os trigonum measuring 0.4 x 0.6 cm EFFUSIONS: None. Continued Report - Page 2 of 2 Patient: DORINDA MILLER Phone#: : 1940 Age: 84 Gender: M Pt. Type: Out Account: [id number] Location: [facility] Ordering: JAYME COELHO Exam Date: 03/18/2025/11:14 Family Phys: Charge Code: [id number] Physician: [place] Order #: [id number] Dose#: OTHER: There is large amount of edema surrounding the ankle extending into the foot. There is edema in the musculature of the flexor hallucis longus muscle. There is fluid surrounding the tibialis posterior and flexor hallucis longus tendon as it passes inferior to the midfoot, consistent with tenosynovitis. CONCLUSION: 1. High-grade tear of the peroneus brevis tendon. 2. Tendinosis of the peroneus longus tendon 3. Enlarged posterior tibial nerve, correlate for tarsal tunnel syndrome. 4. Tenosynovitis of tibialis posterior, flexor digitorum longus and flexor hallucis longus tendons. Tenosynovitis is noted in the tarsal tunnel as well as inferior to the mid foot. 5. Edema in the sinus tarsi, correlate for sinus tarsi syndrome. 6. Edema in the talus and anterior process of the calcaneus without focal fracture. This appearance can be seen with complex regional pain syndrome, recommend clinical correlation. 7. Extensive subcutaneous edema 8. Calcaneofibular ligament sprain Dictated by: Jaqueline Yanez MD on 03/22/2025 at 15:51 Approved by: Jaqueline Yanez MD on 03/22/2025 at 16:30 Normal [facility] No Panel Informationon 03-18 Shiga Toxins 1 and 2 See Note Normal [facility] [email or web address]; [employer] - [facility] [employer] [facility]okeTel[facility] Work Phone: C DIFF COMPLETEon 03-17-2025 C DIFF COMPLETE C DIFF COMPLETE 0{ C-DIFF TOXIN _negative__ (NRL: NEGATIVE ) 03/17/25.2217.AEL. C-DIFF AG NEGATIVE INTERNAL NEG QC PASS INTERNAL POS QC PASS EXTERNAL QC DONE? YES INTERPRETATION: POSITIVE Ag,POSITIVE Tox = C. Diff is present & producing toxins POSITIVE Ag,NEGATIVE Tox = C. Diff is present NEGATICE Ag,NEGATICE Tox = C. Diff is not present A low percentage of specimens may test negative for antigen but positive for toxin. A fresh specimen should be resumbitted for retesting. Normal [facility] Comment on above: Performed By: #### [id number] #### [facility],[address] [place] [address] Laboratory - Chemistry and C hemistry - challengeon 03-17-2025 Albumin [Mass/Vol] 2.7 g/dL Abnormal 3.7 - 4.7 g/dL [facility]; [facility] Work Phone: ALP [Catalytic activity/Vol] 87 U/L Normal 44 - 121 [iU]/L [facility]; [facility] Work Phone: ALT [Catalytic activity/Vol] 15 U/L Normal 0 - 44 [iU]/L [facility]; [facility] Work Phone: AST [Catalytic activity/Vol] 15 U/L Normal 0 - 40 [iU]/L [facility]; [facility] Work Phone: Bilirubin [Mass/Vol] mg/dL Normal 0.0 - 1 .2 mg/dL [facility]; [facility] Work Phone: Calcium [Mass/Vol] 8.3 mg/dL Abnormal 8.6 - 10. 2 mg/dL [facility]; [facility] Work Phone: Chloride [Moles/Vol] 105 mmol/L Normal 96 - 10 6 mmol/L [facility]; [facility] Work Phone: CO2 [Moles/Vol] 20 mmol/L Normal 20 - 29 mmol/L [facility]; [facility] Work Phone: Creatinine [Mass/Vol] 0.95 mg/dL Normal 0.76 - 1.27 mg/dL [facility]; [facility] Work Phone: CRP [Mass/Vol] 40 mg/L Abnormal 0 - 10 mg/L [facility]; [facility] Work Phone: GFR/1.73 sq M.predicted among non-blacks MDRD (S/P/Bld) [Vol rate/Area] 80 mL/min/{1.73_m2} Normal [facility]; [facility] Work Phone: Globulin (S) [Mass/Vol] 3.4 g/dL Normal 1.5 - 4.5 g/dL [facility]; [facility] Work Phone: Glucose [Mass/Vol] 120 mg/dL Abnormal 70 - 99 mg/dL [facility]; [facility] Work Phone: Lipase [Catalytic activity/Vol] 33 U/L Normal 13 - 78 U/L [facility]; [facility] Work Phone: Potassium [Moles/Vol] 4.1 mmol/L Normal 3.5 - 5.2 mmol/L [facility]; [facility] Work Phone: Prostate specific Ag [Mass/Vol] 5.9 ng/mL Abnormal 0.0 - 4.0 ng/mL [facility]; [facility] Work Phone: Protein [Mass/Vol] 6.1 g/dL Normal 6.0 - 8.5 g/dL [facility]; [facility] Work Phone: Sodium [Moles/Vol] 138 mmol/L Normal 134 - 144 mmol/L [facility]; [facility] Work Phone: TSH Qn 5.630 {uIU/mL} Abnormal 0.450 - 4.500 {uIU/mL} [facility]; [facility] Work Phone: Urea nitrogen [Mass/Vol] 23 mg/dL Normal 8 - 27 mg/dL [facility]; [facility] Work Phone: Urea nitrogen/Creatinine [Mass ratio] 24 mg/mg Normal 10 - 24 [facility]; [facility] Work Phone: Laboratory - Hematology and Cell countson 03-17-2025 Basophils (Bld) [#/Vol] 0.0 10*3/uL Normal 0.0 - 0.2 {x10E3/uL} [facility]; [facility] Work Phone: Basophils/100 WBC (Bld) 0 % Normal [facility]; [facility] Work Phone: Eosinophils (Bld) [#/Vol] 0.1 10*3/uL Normal 0.0 - 0.4 {x10E3/uL} [facility]; [facility] Work Phone: Eosinophils/100 WBC (Bld) 1 % Normal [facility]; [facility] Work Phone: Erythrocyte distribution width (RBC) [Ratio] 15.6 % Abnormal 11.6 - 15.4 % [facility]; [facility] Work Phone: Hematocrit (Bld) [Volume fraction] 23.7 % Abnormal 37.5 - 51.0 % [facility]; [facility] Work Phone: Hemoglobin (Bld) [Mass/Vol] 6.7 g/dL Abnormal 13.0 - 17.7 g/dL [facility]; [facility] Work Phone: Immature granulocytes (Bld) [#/Vol] 0.2 10*3/uL Abnormal 0.0 - 0.1 {x10E3/uL} [facility]; [facility] Work Phone: Immature granulocytes/100 WBC (Bld) 1 % Normal [facility]; [facility] Work Phone: Lymphocytes (Bld) [#/Vol] 1.7 10*3/uL Normal 0.7 - 3.1 {x10E3/uL} [facility]; [facility] Work Phone: Lymphocytes/100 WBC (Bld) 13 % Normal [facility]; [facility] Work Phone: MCH (RBC) [Entitic mass] 20.4 pg Abnormal 26.6 - 33.0 pg [facility]; [facility] Work Phone: MCHC (RBC) [Mass/Vol] 28.3 g/dL Abnormal 31.5 - 35.7 g/dL [facility]; [facility] Work Phone: MCV (RBC) [Entitic vol] 72 fL Abnormal 79 - 97 fL [facility]; [facility] Work Phone: Monocytes (Bld) [#/Vol] 1.0 10*3/uL Abnormal 0.1 - 0.9 {x10E3/uL} [facility]; [facility] Work Phone: Monocytes/100 WBC (Bld) 8 % Normal [facility]; [facility] Work Phone: Neutrophils (Bld) [#/Vol] 10.1 10*3/uL Abnormal 1.4 - 7.0 {x10E3/uL} [facility].; [facility]. Work Phone: Neutrophils/100 WBC (Bld) 77 % Normal [facility]; [facility]. Work Phone: Platelets (Bld) [#/Vol] 504 10*3/uL Abnormal 150 - 450 {x10E3/uL} [facility]; [place] [address] [facility]. Work Phone: RBC (Bld) [#/Vol] 3.28 10*6/uL Abnormal 4.14 - 5.8 0 {x10E6/uL} [facility].; [facility]. Work Phone: WBC (Bld) [#/Vol] 13.1 10*3/uL Abnormal 3.4 - 10.8 {x10E3/uL} [facility].; [place] [address] [facility]. Work Phone: Laboratory - Microbiology an d Antimicrobial susceptibilityon 03-17-2025 Bacteria identified Cx Nom (Bld) See Note Normal [facility]; [facility]. Work Phone: C. difficile toxin A+B IA Ql (Stl) See Note Normal [facility] Influx [facility].; [facility] In[facility] Work Phone: No Panel Informationon 03-17 Culture Stool/Yersinia See Note Normal [facility].; [facility] Work Phone: OVA AND PARASITE EXAM See Below Normal [facility].; [facility] Work Phone: STOOL CULTURE [CHAPO]on Stool culture STOOL CULTURE [AULTM AN] 03/22/25.0931.DNP.COMPLE TE Normal [facility] Comment on above: Performed By: #### [id number] #### [facility],[address] [place] [address] CV VENOUS LEG LTon CV VENOUS LEG LT [place] [address] Patient: DORINDA MILLERKenneth Phone#: : 1940 Age: 84 Gender: M Pt. Type: Out Account: [id number] Location: [facility] Ordering: JAYME LAQUITA Exam Date: 03/08/2025/14:22 Family Phys: Charge Code: [id number] Physician: [place] Order #: [id number] Dose#: PROCEDURE: VENOUS DOPPLER LT LEG COMPARISON: None. INDICATIONS: PAIN AND EDEMA TECHNIQUE: Color duplex Doppler ultrasound evaluation analysis was performed in the usual manner. [employer] OFFICER: NIKKIE FOSTER Renetta [facility] RISK FACTORS FOR VENOUS DISEASE: Other Pain and edema EXAMINATION: RIGHT +Present -Reduced o Absent LEFT SPONT PHASIC AUG REFLUX COMP SPONT PHASIC AUG REFLUX COMP + + + o + CFV + + + o + SFJ + FV (prox) + + + o + FV (mid) + FV (dist) + POP V + + + o + T/P TRUNK + + + o + PTV + + + o + PERONEAL V + + + o + GSV + GASTROC SOLEAL V [employer] OFFICER'S NOTES: FINDINGS: THROMBI: None visible. Continued Report - Page 2 of 2 Patient: DORINDA MILLERKenneth Phone#: : 1940 Age: 84 Gender: M Pt. Type: Out Account: [id number] Location: 010 Ordering: JAYME COELHO Exam Date: 03/08/2025/14:22 Family Phys: Charge Code: [id number] Physician: [place] Order #: [id number] Dose#: COMPRESSIBILITY: Normal. OTHER: Negative. CONCLUSION: 1. There is no evidence of superficial or deep vein thrombus. Dictated by: Isabel Montero MD on 03/08/2025 at 15:04 Approved by: Isabel Montero MD on 03/08/2025 at 15:06 Normal [facility] CT ANKLE W/O LTon 09-07-2024 CT ANKLE W/O LT [place] [address] Patient: DORINDA MILLER Phone#: : 1940 Age: 84 Gender: M Pt. Type: Out Account: [id number] Location: 010 Ordering: PACHECO SAWANT Exam Date: 09/07/2024/15:34 Family Phys: Charge Code: [id number] Physician: [place] Order #: [id number] Dose#: 6.80 mGy PROCEDURE: CT ANKLE LT WITHOUT CONTRAST COMPARISON: [facility], XR, CHEST AP, 08/20/2017, 10:44. INDICATIONS: Pain. TECHNIQUE: Multi-planar CT images were created without intravenous contrast. All CT scans at this facility use dose modulation, iterative reconstruction, and/or weight based dosing when appropriate to reduce radiation dose to as low as reasonably achievable. IV CONTRAST: No IV contrast used,0ml TOTAL DOSE: 6.80 CTDIvol(mGy) FINDINGS: BONES: There is dense enthesopathy between the distal tibia and fibula interosseous ligament without fusion. There is an ossification at the anterior surface of the distal fibula, likely sequela of prior trauma. There is spurring of the distal tibia. There is an os trigonum measuring 0.4 x 0.5 cm. There is diffuse bony demineralization. There are subchondral cysts in the lateral cuneiform and 5th metatarsal. SOFT TISSUES: There is edema in the soft tissues of the ankle EFFUSION: None visible. OTHER: Negative. CONCLUSION: 1. No acute osseous abnormality 2. Soft tissue swelling. If there is concern for ligamentous injury consider further evaluation with MRI. Dictated by: Jaqueline Yanez MD on 09/07/2024 at 16:50 Approved by: Jaqueline Yanez MD on 09/07/2024 at 17:09 Normal [facility] Laboratory - Chemistry and C hemistry - challengeon 08-20-2017 Albumin [Mass/Vol] 4.4 g/dL Normal 3.4 - 4.8 g/dL [facility]; [facility] Work Phone: Albumin [Mass/Vol] 1.5 g/dL Normal 0.9 - 1.6 [facility]; [facility] Work Phone: ALT [Catalytic activity/Vol] 14 U/L Normal 10 - 40 U/L [facility]; [facility]. Work Phone: Anion gap [Moles/Vol] 11 mmol/L Normal 10 - 2 0 mmol/L [facility]; [facility]. Work Phone: AST [Catalytic activity/Vol] 18 U/L Normal 13 - 39 U/L [facility]; [facility]. Work Phone: Bilirubin [Mass/Vol] 0.4 mg/dL Normal 0.0 - 1 .5 mg/dL [facility]; [facility]. Work Phone: Calcium [Mass/Vol] 9.6 mg/dL Normal 8.6 - 10. 2 mg/dL [facility]; [facility] Work Phone: Chloride [Moles/Vol] 104 mmol/L Normal 98 - 10 7 mmol/L [facility]; [facility] Work Phone: CO2 [Moles/Vol] 24.8 mmol/L Normal 21.0 - 31.0 mmol/L [facility]; [facility] Work Phone: Creatinine [Mass/Vol] 1.1 mg/dL Normal 0.7 - 1.3 mg/dL [facility]; [facility] Work Phone: GFR/1.73 sq M.predicted among blacks MDRD (S/P/Bld) [Vol rate/Area] mL/min/{1.73_m2} Normal 60 - 999 {ML/MINUTE} [facility]; [facility] Work Phone: GFR/1.73 sq M.predicted MDRD (S/P/Bld) [Vol rate/Area] mL/min/{1.73_m2} Normal 60 - 999 {ML/MINUTE} [facility], [facility]. Work Phone: Globulin (S) [Mass/Vol] 3.0 g/dL Normal 1.5 - 3.8 g/dL [facility]; [facility], [facility] Work Phone: Glucose [Mass/Vol] 100 mg/dL Normal 74 - 106 mg/dL [facility]; [facility] Work Phone: Potassium [Moles/Vol] 3.9 mmol/L Normal 3.5 - 5.1 mmol/L [facility]; [facility] Work Phone: Protein [Mass/Vol] 7.4 g/dL Normal 6.4 - 8.3 g/dL [facility]; [facility] Work Phone: Sodium [Moles/Vol] 136 mmol/L Normal 136 - 145 mmol/L [facility]; [facility] Work Phone: Troponin I.cardiac Qn 0.01 ng/mL Normal 0.00 - 0.05 ng/mL [facility]; [facility] Work Phone: Troponin I.cardiac Qn 0.02 ng/mL Normal 0.00 - 0.05 ng/mL [facility]; [facility] Work Phone: Urea nitrogen [Mass/Vol] 26 mg/dL Abnormal 6 - 20 mg/dL [facility]; [facility] Work Phone: Urea nitrogen/Creatinine [Mass ratio] 24 {ratio} Normal 0 - 30 {ratio} [facility]; [facility] Work Phone: Laboratory - Hematology and Cell countson 08-20-2017 Basophils (Bld) [#/Vol] 0.00 {x10EE3/UL} Normal 0.00 - 0.10 {x10EE3/UL} [facility]; [facility], [facility]. Work Phone: Basophils/100 WBC (Bld) 0.4 % Normal 0.0 - 2.0 % [facility]; [facility]. Work Phone: CBC panel Auto (Bld) Normal [facility]; [facility] Work Phone: Eosinophils (Bld) [#/Vol] 0.00 {x10EE3/UL} Normal 0.00 - 0.50 {x10EE3/UL} [facility]; [facility] Work Phone: Eosinophils/100 WBC (Bld) 0.1 % Normal 0.0 - 7.0 % [facility]; [facility] Work Phone: Erythrocyte distribution width (RBC) [Ratio] 14.2 % Normal 12.0 - 15.6 % [facility]; [facility] Work Phone: Hematocrit (Bld) [Volume fraction] 38.5 % Abnormal 40.0 - 52.0 % [facility]; [facility] Work Phone: Hemoglobin (Bld) [Mass/Vol] 13.1 g/dL Normal 13.0 - 17.5 g/dL [facility]; [facility] Work Phone: Lymphocytes (Bld) [#/Vol] 1.00 {x10EE3/UL} Normal 0.80 - 2.80 {x10EE3/UL} [facility]; [facility] Work Phone: Lymphocytes/100 WBC (Bld) 8.7 % Abnormal 20.0 - 45.0 % [facility]; [facility] Work Phone: MCH (RBC) [Entitic mass] 30 pg Normal 27 - 33 pg [facility]; [facility] Work Phone: MCHC (RBC) [Mass/Vol] 34 {X10_3} Normal 32 - 3 6 {X10_3} [facility]; [facility], [facility] Work Phone: MCV (RBC) [Entitic vol] 89 fL Normal 81 - 98 fL [facility]; [facility] Work Phone: Monocytes (Bld) [#/Vol] 0.90 {x10EE3/UL} Normal 0.20 - 1.00 {x10EE3/UL} [facility]; [facility] Work Phone: Monocytes/100 WBC (Bld) 7.5 % Normal 0.0 - 10.0 % [facility]; [facility] Work Phone: Morphology Oni (Bld) [Interp] N/A Normal [facility]; [facility] Work Phone: Neutrophils (Bld) [#/Vol] 9.60 {x10EE3/UL} Abnormal 1.50 - 7.10 {x10EE3/UL} [facility]; [facility] Work Phone: Neutrophils/100 WBC (Bld) 83.3 % Abnormal 46.0 - 76.0 % [facility]; [facility] Work Phone: Platelet mean volume (Bld) [Entitic vol] 6.3 fL Abnormal 6.4 - 10.5 fL [facility]; [facility] Work Phone: Platelets (Bld) [#/Vol] 280 {x10EE3/UL} Normal 150 - 450 {x10EE3/UL} [facility]; [facility]. Work Phone: RBC (Bld) [#/Vol] 4.36 {x_10EE6/UL} Abnormal 4.50 - 6.00 {x_10EE6/UL} [facility]; [facility], [facility]. Work Phone: WBC (Bld) [#/Vol] 11.6 {x_10EE3/UL} Abnormal 4.5 - 10.8 {x_10EE3/UL} [facility]; [facility]. Work Phone: No Panel Informationon 08-20 AGE 76 {years} Normal [facility]; [facility]. Work Phone: ALK PHOS 51 U/L Normal 38 - 126 U/L [facility]; [facility]. Work Phone: CMP with eGFR Normal [facility]; [facility]. Work Phone: MANUAL DIFF N/A Normal [facility]; [facility]. Work Phone: Laboratory - Chemistry and C hemistry - challengeon 01-09-2014 Calcium [Mass/Vol] 8.2 mg/dL Abnormal 8.4 - 10. 1 mg/dL [facility]; [facility]. Work Phone: Chloride [Moles/Vol] 105 mmol/L Normal 98 - 11 0 meq/L [facility]; [facility]. Work Phone: CO2 [Moles/Vol] 25 mmol/L Normal 22 - 32 meq/L [facility].; [facility]. Work Phone: Creatinine [Mass/Vol] 0.83 mg/dL Normal 0.60 - 1.40 mg/dL [facility].; [facility]. Work Phone: GFR/1.73 sq M.predicted among blacks MDRD (S/P/Bld) [Vol rate/Area] mL/min/{1.73_m2} Normal [facility].; [place] [address] [facility]. Work Phone: GFR/1.73 sq M.predicted among non-blacks MDRD (S/P/Bld) [Vol rate/Area] mL/min/{1.73_m2} Normal [facility]; [facility] Work Phone: Glucose [Mass/Vol] 105 mg/dL Normal 82 - 115 mg/dL [facility]; [facility] Work Phone: Potassium [Moles/Vol] 4.0 mmol/L Normal 3.5 - 5.0 meq/L [facility]; [facility] Work Phone: Sodium [Moles/Vol] 137 mmol/L Normal 136 - 145 meq/L [facility]; [facility] Work Phone: Urea nitrogen [Mass/Vol] 13.0 mg/dL Normal 8.0 - 22.0 mg/dL [facility] Work Phone: Urea nitrogen/Creatinine [Mass ratio] 15.7 mg/mg Normal 10.0 - 22.0 [facility]; [facility] Work Phone: Laboratory - Hematology and Cell countson 01-09-2014 Basophils/100 WBC (Bld) 0.1 % Normal 0.0 - 2.5 % [facility] Work Phone: Eosinophils/100 WBC (Bld) 0.1 % Normal 0.0 - 6.0 % [facility] Work Phone: Erythrocyte distribution width (RBC) [Ratio] 13.5 % Normal 11.5 - 15.5 % [facility] Work Phone: Hematocrit (Bld) [Volume fraction] 34.5 % Abnormal 40.0 - 52.0 % [facility]; [facility] Work Phone: Hemoglobin (Bld) [Mass/Vol] 11.8 g/dL Abnormal 13.0 - 17.5 g/dL [facility]; [facility] Work Phone: Lymphocytes/100 WBC (Bld) 7.0 % Abnormal 20.0 - 40.0 % [facility]; [facility] Work Phone: MCH (RBC) [Entitic mass] 30.3 pg Normal 27.0 - 33.0 pg [facility]; [facility] Work Phone: MCHC (RBC) [Mass/Vol] 34.3 g/dL Normal 32.0 - 36.0 g/dL [facility]; [facility], [facility] Work Phone: MCV (RBC) [Entitic vol] 88.3 fL Normal 81.0 - 98.0 fL [facility]; [facility] Work Phone: Monocytes/100 WBC (Bld) 9.5 % Normal 2.0 - 13.0 % [facility]; [facility] Work Phone: Neutrophils (Bld) [#/Vol] 10.60 {10_3/mcL} Abnormal 2.00 - 8.00 {10_3/mcL} [facility]; [facility], [facility] Work Phone: Neutrophils/100 WBC (Bld) 83.3 % Abnormal 50.0 - 75.0 % [facility]; [facility], [facility] Work Phone: Platelet mean volume (Bld) [Entitic vol] 6.5 fL Normal 6.4 - 10.5 fL [facility]; [facility], [facility]. Work Phone: Platelets (Bld) [#/Vol] 202 {10_3/mcL} Normal 150 - 450 {10_3/mcL} [facility]; [facility], [facility]. Work Phone: RBC (Bld) [#/Vol] 3.90 {10_6/mcL} Abnormal 4.50 - 6.00 {10_6/mcL} [facility], [facility]. Work Phone: WBC (Bld) [#/Vol] 12.80 {10_3/mcL} Abnormal 4.50 - 10.80 {10_3/mcL} [facility], [facility]. Work Phone: No Panel Informationon 01-09 Electrolyte Balance 7.0 meq/L Normal 4.0 - 15 .0 meq/L [facility]; [facility], [facility]. Work Phone: Laboratory - Chemistry and C hemistry - challengeon 01-08-2014 Calcium [Mass/Vol] 8.3 mg/dL Abnormal 8.4 - 10. 1 mg/dL [facility]; [facility], [facility]. Work Phone: Chloride [Moles/Vol] 105 mmol/L Normal 98 - 11 0 meq/L [facility]; [facility], [facility]. Work Phone: CO2 [Moles/Vol] 24 mmol/L Normal 22 - 32 meq/L [facility]; [facility], [facility]. Work Phone: Creatinine [Mass/Vol] 0.88 mg/dL Normal 0.60 - 1.40 mg/dL [facility]; [facility]. Work Phone: GFR/1.73 sq M.predicted among blacks MDRD (S/P/Bld) [Vol rate/Area] mL/min/{1.73_m2} Normal [facility], [facility]. Work Phone: GFR/1.73 sq M.predicted among non-blacks MDRD (S/P/Bld) [Vol rate/Area] mL/min/{1.73_m2} Normal [facility]. Work Phone: Glucose [Mass/Vol] 116 mg/dL Abnormal 82 - 115 mg/dL [facility]. Work Phone: Potassium [Moles/Vol] 4.0 mmol/L Normal 3.5 - 5.0 meq/L [facility].; [facility]. Work Phone: Sodium [Moles/Vol] 136 mmol/L Normal 136 - 145 meq/L [facility].; [facility]. Work Phone: Urea nitrogen [Mass/Vol] 17.0 mg/dL Normal 8.0 - 22.0 mg/dL [facility]. Work Phone: Urea nitrogen/Creatinine [Mass ratio] 19.3 mg/mg Normal 10.0 - 22.0 [facility].; [facility], [facility]. Work Phone: Laboratory - Hematology and Cell countson 01-08-2014 Basophils/100 WBC (Bld) 0.1 % Normal 0.0 - 2.5 % [facility].; [facility]. Work Phone: Eosinophils/100 WBC (Bld) 0.1 % Normal 0.0 - 6.0 % [facility]; [facility] Work Phone: Erythrocyte distribution width (RBC) [Ratio] 13.5 % Normal 11.5 - 15.5 % [facility]; [facility] Work Phone: Hematocrit (Bld) [Volume fraction] 34.0 % Abnormal 40.0 - 52.0 % [facility]; [facility] Work Phone: Hemoglobin (Bld) [Mass/Vol] 11.8 g/dL Abnormal 13.0 - 17.5 g/dL [facility]; [facility] Work Phone: Lymphocytes/100 WBC (Bld) 5.6 % Abnormal 20.0 - 40.0 % [facility]; [facility] Work Phone: MCH (RBC) [Entitic mass] 30.5 pg Normal 27.0 - 33.0 pg [facility]; [facility] Work Phone: MCHC (RBC) [Mass/Vol] 34.7 g/dL Normal 32.0 - 36.0 g/dL [facility]; [facility] Work Phone: MCV (RBC) [Entitic vol] 88.1 fL Normal 81.0 - 98.0 fL [facility]; [facility] Work Phone: Monocytes/100 WBC (Bld) 7.9 % Normal 2.0 - 13.0 % [facility]; [facility] Work Phone: Neutrophils (Bld) [#/Vol] 14.30 {10_3/mcL} Abnormal 2.00 - 8.00 {10_3/mcL} [facility].; [facility]. Work Phone: Neutrophils/100 WBC (Bld) 86.3 % Abnormal 50.0 - 75.0 % [facility]. Work Phone: Platelet mean volume (Bld) [Entitic vol] 6.6 fL Normal 6.4 - 10.5 fL [facility]; [facility]. Work Phone: Platelets (Bld) [#/Vol] 225 {10_3/mcL} Normal 150 - 450 {10_3/mcL} [facility]; [facility]. Work Phone: RBC (Bld) [#/Vol] 3.86 {10_6/mcL} Abnormal 4.50 - 6.00 {10_6/mcL} [facility].; [facility]. Work Phone: WBC (Bld) [#/Vol] 16.60 {10_3/mcL} Abnormal 4.50 - 10.80 {10_3/mcL} [facility].; [facility], [place]. Work Phone: No Panel Informationon 01-08 Electrolyte Balance 7.0 meq/L Normal 4.0 - 15 .0 meq/L [facility]; [facility]. Work Phone: Laboratory - Chemistry and C hemistry - challengeon 03-06-2012 Bilirubin Ql (U) Negative Normal [facility]; [facility], [facility] Ketones Ql (U) Negative Normal [facility]; [facility], [facility] pH (U) 5.0 [pH] Normal [facility]; [facility] Specific gravity (U) [Rel density] 1.020 Normal [facility].; [facility], [facility] Laboratory - Hematology and Cell countson 03-06-2012 Hemoglobin Ql (U) Negative Normal [facility].; [facility], [facility] Laboratory - Specimen inform ationon 03-06-2012 Appearance (U) cLEAR Normal [facility].; [facility], [facility] Color (U) yELLOW Normal [facility].; [facility], [facility] Laboratory - Urinalysison Glucose Test strip (U) [Mass/Vol] Negative Normal [facility].; [facility], [facility]. Leukocyte esterase Test strip Ql (U) Negative Normal [facility], [facility].; [facility], [facility] Nitrite Ql (U) Negative Normal [facility].; [facility], [facility] Protein Ql (U) Negative Normal [facility].; [facility], [facility] No Panel Informationon 03-06 UA - ODOR Negative Normal [facility].; [facility], [facility]. UA - UROBILIGEN 0.2 Normal [facility].; [facility], [place]. Vital Signs Date Time Vital Sign Value Performing Clinician Facility 04-06-2025 14:49-0400 Body height 163.83 cm Katie Woods RN [facility].; [facility], [facility]. 04-06-2025 14:49-0400 Body mass index (BMI) [Ratio] 25.01 kg/m2 Katie Woods RN [facility].; [facility], [facility]. 04-06-2025 14:49-0400 Body surface area Derived from formula 1.73 m2 Katie Woods RN [facility].; [facility], [facility]. 04-06-2025 14:49-0400 Body weight 67.13 kg Katie Woods RN [facility].; [facility], [place]. 04-06-2025 14:49-0400 Diastolic blood pressure 74 mm[Hg] Katie Woods RN [facility].; [employer] [facility], [place]. Comment on above: Patient Position: Si tting; Cuff Location: Left Arm; Cuff Size: Large 04-06-2025 14:49-0400 Heart rate 78 /min Katie Woods RN [facility], [place] [employer] [facility], [place]. Comment on above: Pattern: Regular 04-06-2025 14:49-0400 Systolic blood pressure 119 mm[Hg] Katie Woods RN [facility], [place] [employer] [facility], [place]. Comment on above: Patient Position: Si tting; Cuff Location: Left Arm; Cuff Size: Large 03-16-2025 14:24-0400 Body height 163.83 cm Katie Woods RN [facility], Inc.; [employer] [facility], [facility] 03-16-2025 14:24-0400 Body mass index (BMI) [Ratio] 25.18 kg/m2 Katie Woods RN [facility], [facility].; [employer] [facility], [place]. 03-16-2025 14:24-0400 Body surface area Derived from formula 1.74 m2 Katie Woods RN [facility], [facility].; [employer] [facility], Inc[facility] 03-16-2025 14:24-0400 Body temperature 97.9 [degF] Katie Woods RN [facility], [place] [employer] [facility], [place]. Comment on above: Method: Oral 03-16-2025 14:24-0400 Body weight 67.59 kg Katie Woods RN [facility], [facility].; [employer] [facility], [employer] 03-16-2025 14:24-0400 Diastolic blood pressure 79 mm[Hg] Katie Woods RN [facility], Inc.; [employer] [facility], [place]. Comment on above: Patient Position: Si tting; Cuff Location: Left Arm; Cuff Size: Large 03-16-2025 14:24-0400 Heart rate 83 /min Katie Woods RN [facility], [facility].; [employer] [facility], Inc[facility] Comment on above: Pattern: Regular 03-16-2025 14:24-0400 Systolic blood pressure 136 mm[Hg] Katie Woods RN [facility], [facility].; [employer] [facility], [employer] Comment on above: Patient Position: Si tting; Cuff Location: Left Arm; Cuff Size: Large 09-02-2017 13:06-0400 Body height 163.83 cm Esthela Talbert RN [facility], [facility].; [employer] [facility] [employer] [facility], [facility] 09-02-2017 13:06-0400 Body mass index (BMI) [Ratio] 27.55 kg/m2 Esthela Talbert RN [facility], [facility].; [employer] [facility], [facility] 09-02-2017 13:06-0400 Body surface area Derived from formula 1.8 m2 Esthela Talbert RN [facility], Inc.; [employer] [facility] [employer] 09-02-2017 13:06-0400 Body temperature 97.7 [degF] Esthela Talbert RN [facility], Inc.; [employer] Comment on above: Method: Oral 09-02-2017 13:06-0400 Body weight 73.94 kg Esthela Talbert RN [facility], [facility].; [employer] [facility] Gonzalez [employer] 09-02-2017 13:06-0400 Diastolic blood pressure 91 mm[Hg] Esthela Talbert RN [facility], [facility].; [employer] Comment on above: Patient Position: Si tting; Cuff Location: Left Arm; Cuff Size: Standard 09-02-2017 13:06-0400 Heart rate 73 /min Esthela Talbert RN [facility], [place] [employer] Comment on above: Pattern: Regular 09-02-2017 13:06-0400 Systolic blood pressure 138 mm[Hg] Esthela Talbert RN [facility], [facility].; [employer] Comment on above: Patient Position: Si tting; Cuff Location: Left Arm; Cuff Size: Standard 02-28-2015 15:03-0400 Body height 163.19 cm Esthela Talbert RN [facility], Inc.; [facility], Inc[facility] 02-28-2015 15:03-0400 Body mass index (BMI) [Ratio] 28.61 kg/m2 Esthela Talbert RN [facility], Inc.; [employer] [facility], Inc. 02-28-2015 15:030400 Body surface area Derived from formula 1.82 m2 Esthela Talbert RN [facility], Inc.; [facility], Inc[facility] 02-28-2015 15:03-0400 Body temperature 98 [degF] Esthela Talbert RN [facility], [facility].; [facility], [employer] Comment on above: Method: Oral 02-28-2015 15:030400 Body weight 76.2 kg Esthela Talbert RN [facility], Inc.; [facility], Inc[facility] 02-28-2015 15:030400 Diastolic blood pressure 74 mm[Hg] Esthela Talbert RN [facility], [facility].; [employer] [facility], [place]. Comment on above: Patient Position: Si tting; Cuff Location: Left Arm; Cuff Size: Standard 02-28-2015 15:03-0400 Heart rate 58 /min Esthela Talbert RN [facility], [facility].; [employer] [facility], Inc[employer] Comment on above: Pattern: Regular 02-28-2015 15:03-0400 Systolic blood pressure 133 mm[Hg] Esthela Talbert RN [facility], Inc.; [employer] [facility], [place]. Comment on above: Patient Position: Si tting; Cuff Location: Left Arm; Cuff Size: Standard 03-06-2012 13:44-0400 Body height 165.[address]ÑA [facility], Inc.; [facility], Inc[facility] 03-06-2012 13:44-0400 Body mass index (BMI) [Ratio] 27.46 kg/m2 XIOMY PIÑA [facility], Inc.; [facility], Inc[facility] 03-06-2012 13:44-0400 Body surface area Derived from formula 1.82 m2 XIOMY Richey [employer] [facility], Inc.; [employer] [facility], Inc. 03-06-2012 13:44-0400 Body weight 74.84 kg ZULEIKAMarcus Richey [facility], Inc.; [employer] [facility], Inc[employer] 03-06-2012 13:44-0400 Diastolic blood pressure 87 mm[Hg] ZULEIKAMarcus Richey [facility].; [employer] Gonzalez [facility], [facility]. Comment on above: Patient Position: Si tting; Cuff Location: Left Arm; Cuff Size: Standard 03-06-2012 13:44-0400 Heart rate 80 /min ZULEIKAMarcus Richey [employer] [facility].; [employer] [facility], [facility]. Comment on above: Pattern: Regular 03-06-2012 13:44-0400 Systolic blood pressure 122 mm[Hg] ZULEIKAMarcus Richey PIÑA [facility] [employer] [facility].; [employer] [facility], [facility]. Comment on above: Patient Position: Si tting; Cuff Location: Left Arm; Cuff Size: Standard Encounters Encounter Date Encounter Type Care Provider Facility Start: 05-11-2025 ambulatory [facility] Facility :[facility] Start: 05-03-2025 End: 05-03-2025 ambulatory [facility] Start: 04-19-2025 End: 04-19-2025 Historical Summary Burton JUARES MD [facility] Start: 04-19-2025 End: 04-19-2025 Historical Summary Burton JUARES MD Work Phone: [facility] Start: 04-19-2025 End: 04-19-2025 ambulatory [facility] Start: 04-13-2025 End: 04-13-2025 ambulatory [facility] Start: 04-06-2025 End: 04-08-2025 Office outpatient visit 15 minutes Burton JUARES MD Work Phone: [facility] Start: 04-06-2025 Follow-up encounter Burton GARCIA MD [facility]: [facility] Start: 03-29-2025 End: 03-29-2025 Follow-up encounter Burton [facility]UARES MD [facility] Start: 03-26-2025 End: 03-26-2025 ambulatory Burton JUARES [facility] Start: 03-26-2025 End: 03-26-2025 Follow-up encounter Burton JUARES MD [facility] Start: 03-25-2025 End: 03-25-2025 [facility] Start: 03-25-2025 End: 03-25-2025 Lab Only Burton JUARES MD Work [facility] Start: 03-25-2025 Review Burton JUARES MD Work Phone: [facility] Start: 03-25-2025 End: 03-25-2025 ambulatory Burton JE[place] MOR [facility] Start: 03-24-2025 End: 03-24-2025 [facility] Start: 03-23-2025 End: 03-23-2025 ambulatory Burton [facility] Start: 03-23-2025 End: 03-23-2025 Lab Only Burton JUARES MD Work Phone: [facility] Start: 03-22-2025 End: 03-22-2025 Patient encounter procedure Burton JUARES MD Work [facility]: [facility] Start: 03-18-2025 End: 03-18-2025 Results Review Burton JUARES MD Work [facility] Start: 03-18-2025 End: 03-18-2025 ambulatory JAYME [facility] Start: 03-17-2025 End: 03-17-2025 ambulatory Burton TIFFANIE [facility] Start: 03-17-2025 End: 03-17-2025 Lab Only Burton JUARES MD Work Phone: [facility]. Start: 03-16-2025 End: 03-16-2025 Office outpatient visit 15 minutes Burton JUARES MD Work [facility]: [facility] Start: 03-08-2025 End: 03-08-2025 ambulatory JAYME [facility] Start: 09-07-2024 End: 09-07-[address] [facility] Start: 09-02-2017 End: 09-02-2017 Office outpatient visit 25 minutes Burton JUARES MD Work Phone: [facility]. Start: 08-29-2017 End: 08-29-2017 Historical Summary Burton JUARES MD Work Phone: [facility]. Start: 08-21-2017 End: 08-21-2017 Historical Summary Burton JUARES MD Work Phone: [facility]. Start: 08-20-2017 End: 08-20-2017 Office outpatient visit 15 minutes Burton JUARES MD Work Phone: [facility]. Start: 08-20-2017 End: 08-20-2017 Historical Summary Burton JUARES MD Work Phone: [facility]. Start: 03-02-2015 End: 03-02-2015 Results Review Burton JUARES MD Work Phone: [facility] [employer] [facility] Start: 02-28-2015 End: 02-28-2015 Office outpatient visit 25 minutes Burton [facility]UARES MD [facility] Start: 01-14-2014 End: 01-14-2014 Results Review Burton JUARES MD Work Phone: [facility] Start: 03-06-2012 End: 03-06-2012 Nursing evaluation of patient and report Burton JUARES MD Work Phone: [facility] Start: 11-29-2011 End: 11-29-2011 Results Review Burton JUAERS MD Work [facility]: [facility] Procedures Date Procedure Procedure Detail Performing Clinician Start: 04-06-2025 End: 04-06-2025 Dischrg meds reconciled w/current med list Burton JUARES MD Work Phone: Start: 04-06-2025 End: 04-06-2025 Screening colonoscopy Burton JUARES MD Work Phone: Comment on above: hepatic flexure mass Start: 03-29-2025 End: 03-29-2025 Ct abdomen & pelvis w/contrast material Burton JUARES MD Work Phone: Start: 03-29-2025 End: 03-29-2025 Us abdominal real time w/image documentation Burton JUARES MD Work Phone: Start: 03-17-2025 End: 03-17-2025 Prostate specific antigen measurement Burton JUARES MD Work Phone: Comment on above: 5.9 Start: 03-16-2025 End: 03-16-2025 Dischrg meds reconciled w/current med list Burton JUARES MD Work Phone: Start: 08-20-2017 End: 08-20-2017 Yvette CAINER Comment on above: [facility] Start: 08-20-2017 End: 08-20-2017 Echocardiography TIFFANIE SHAH MD Work Phone: Comment on above: EF 60%, aortic scler osis ([facility] inpt) Start: 11-29-2011 End: 11-29-2011 Computerized axial tomography CAMMIE NOVA Comment on above: Results:. BPH, diver ticulosis, r renal cyst Plan of Treatment Date Care Activity Detail Author Start: 05-18-2025 FQ visit, estab pt Medical; ESTABLISHED PATIENT ROUTINE VISIT - [facility] [employer] Start: 18-May-2025 10:15-04:00 MD Burton JUARES Appointment Request Center'd Start: 04-26-2025 Blood count complete auto&auto difrntl wbc CBC, PLATELETS & AUT DIFF ([id number]) Start: 26-Apr-2025 09:18-04:00 Request [employer]; [place] [employer]. Start: 04-20-2025 Patient encounter procedure Medical; LAB ONLY - Center[facility] Start: 20-Apr-2025 08:45-04:00 MD Burton JUARES Appointment Request Center'd Start: 04-13-2025 Follow-up encounter [facility] [employer]. Start: 04-06-2025 Blood count complete auto&auto difrntl wbc [employer]; [place] [employer]. Start: 03-25-2025 Blood count complete auto&auto difrntl wbc CBC, PLATELETS & AUT DIFF ([id number]) Start: 25-Mar-2025 11:06-04:00 Request [employer]; [place] - [employer]. Start: 03-23-2025 Whole blood for transfusion BLOOD, FOR TRANSFUSION, PER UNIT ([id number]) : 2 units PRBC; Please give 20 mg lasix IV after first unit. Start: 23-Mar-2025 Intent [employer]; [employer]. Start: 03-23-2025 Antibody screen rbc each serum technique RBC [place] [facility][id number][facility] : Type and crossmatch 2 units PRBC Start: 23-Mar-2025 12:-04:00 Request [facility]; [facility], [facility] Start: 03-23-2025 Blood typing serolog ic rh (d) RH (D) BLOOD TYPING ([id number]) Start: 23-Mar-2025 12:21-04:00 Request [facility]; [facility], [facility]. Start: 03-23-2025 Blood typing serolog ic abo ABO BLOOD TYPING ([id number]) Start: 23-Mar-2025 12:-04:00 Request [facility]; [facility], [facility]. Start: 03-17-2025 Assay of prostate specific antigen total [facility]; [facility], [facility]. Start: 03-17-2025 Assay of lipase [facility]; [facility], [facility]. Start: 03-17-2025 Assay of thyroid stimulating hormone tsh [facility]; [facility], [facility]. Start: 03-17-2025 Blood count complete auto&auto difrntl wbc [facility]; [facility] Start: 03-17-2025 C-reactive protein [facility]; [facility] Start: 03-17-2025 Comprehensive metabo lic panel [facility]; [facility] Start: 03-17-2025 Concentration infect ious agents [facility]; [facility] Start: 03-17-2025 Cul bact stool aerob ic isol salmonella&shigell [facility]; [facility] Start: 03-17-2025 Iaad ia clostridium difficile toxin [facility]; [facility] Start: 03-17-2025 Ova&parasites direct smears concentration & id [facility]; [facility] Start: 03-17-2025 Patient encounter procedure Medical; [facility] Start: 17-Mar-2025 13:00-04:00 MATT CRYSTAL [facility]ment [facility] Start: 03-16-2025 Ct abdomen & pelvis w/contrast material CT ABDOMEN AND PELVIS WITH IV AND ORAL CONTRAST ([id number]) Start: 16-Mar-2025 [facility] Start: 03-16-2025 Us abdominal real ti me w/image documentation US ABDOM, COMPLETE ([id number]) Start: 16-Mar-2025 [facility] [employer]. Start: 03-16-2025 Us pelvic nonobstetr ic real-time image complete US PELVIS, COMPLETE ([id number]) Start: 16-Mar-2025 [facility] [employer]. Start: 09-02-2017 Patient Education SYNCOPE Adelaida cation: Syncope, unspecified syncope type Start: 02-Sep-2017 Instruction Type: Patient Education [facility] [employer]. Start: 09-02-2017 End: 09-02-2017 Falls risk assessment documented FALL RISK ASSESSMENT ([id number]) Date: 02-Sep-2017 [facility]; [facility] [employer]. Start: 02-28-2015 End: 02-28-2015 Incision & drainage abscess simple/single I&D SKIN ABSCESS ([id number]) Date: 28-Feb-2015 Comments: Anesthestized with Lidocaine 1% and Epi. I&D'd - partially debrided, not typical sebaceous cyst. Bandaid. [facility] [employer]. Comment on above: Anesthestized with L idocaine 1% and Epi. I&D'd - partially debrided, not typical sebaceous cyst. Bandaid. Immunizations Immunization Date Immunization Notes Care Provider Boris bro 08-20-2017 tetanus toxoid, redu jeanine diphtheria toxoid, and acellular pertussis vaccine, adsorbed R TIFFANIE JUARES MD Work Phone: [facility].; [facility], [facility]. Comment on above: [facility] Payers Date Payer Category Payer Self-pay 2025 Unknown [id number] Unknown [id number] 2.16.8 [id number] 1942 Unknown [id number] 2.16.8 [id number] 1942 Unknown [id number] 2.16.8 [id number] 1942 Unknown [id number] 2.16.8 [id number] 1942 Unknown [id number] 2.16.8 [id number] 1942 Unknown [id number] 2.16.8 40.1.327460.3.579.2.651 1942 Unknown [id number] 2.16.8 40.1.016949.3.579.2.651 1942 Unknown [id number] 2.16.8 [id number] 1942 Unknown [id number] 2.16.8 40.1.155509.3.579.2.651 1942 Unknown [id number] 2.16.8 [id number] 1942 Unknown [id number] 2.16.8 [id number] 1942 Unknown [id number] 2.16.8 [id number] Unknown Unknown 35 Unknown [id number] 2.16.8 [id number] Social History Date Type Detail Facility Alcohol Use: Alcohol Use: ; 1 to 7 drinks per week. Drinks wine. [facility] Tobacco use: Tobacco use: ; Former smoker . [facility] Work Phone: [facility]smoker [facility]; [facility] Work Phone: Clinical Note 03-21-2025 Note Date & Type Note Facility 03-21-2025 Note . MICRO - Microbiology PROCEDURE: Stool Culture with Yersinia [^1 *1] SOURCE: Stool BODY SITE: COLLECTED DATE/TIME: 03/17/2025 13:42 EDT RECEIVED DATE/TIME: 03/18/2025 18:07 EDT START DATE/TIME: 03/18/2025 18:08 EDT FREE TEXT SOURCE: FINAL REPORTS Final Report [] Verified Date/Time/Personnel: 03/21/2025 11:25 EDT Normal stool babita present. Salmonella: Negative Shigella: Negative Campylobacter: Negative Yersinia: Negative PRELIMINARY REPORTS Preliminary Report [] Verified Date/Time/Personnel: 03/20/2025 11:39 EDT Normal stool babita present. Negative for stool pathogens at 48 hours. Final report to follow. Interpretive Data ^1: Culture Stool/Yersinia Requests for alternative pathogens including C. difficile toxin, E. coli 0157 Rotavirus, Giardia and parasites require specific requests. Performing Locations *1: This test was performed at: [facility], [address] [place] [address], [facility] , [facility] Clinical Note 03-19-2025 Note Date & Type Note Facility 03-19-2025 Note . MICRO - Microbiology PROCEDURE: Shiga Toxins 1 and 2 [[id number]: [id number] ^1 *1] SOURCE: Stool BODY SITE: COLLECTED DATE/TIME: 03/18/2025 18:08 EDT RECEIVED DATE/TIME: 03/18/2025 18:08 EDT START DATE/TIME: 03/18/2025 18:08 EDT FREE TEXT SOURCE: FINAL REPORTS Final Report [] Verified Date/Time/Personnel: 03/19/2025 13:23 EDT Absence of Shiga toxin 1 Absence of Shiga toxin 2 Order Comments O1: Shiga Toxins 1 and 2 ordered by lab as part of Culture Stool Panel Interpretive Data ^1: Shiga Toxins 1 and 2 Testing performed by immunochromatography. Performing Locations *1: This test was performed at: [facility], [address] [place] [address], [address] [place] [address] MAIN Summary Purpose Family History No Family History Records FoundNo Family History Records FoundNo Family History Records Found Advance Directives No Advanced Directives Records FoundNo Advanced Directives Records FoundNo Advanced Directives Records Found Additional Source Comments (unrecognized sect ion and content) No Status Records FoundNo Status Records FoundNo Status Records Found INFORMATION SOURCE (unrecogn ized section and content) DATE CREATED AUTHOR 04/29/2025 [facility] DATE CREATED AUTHOR AUTHOR'S ORGANIZ ATION 05/05/2025 [facility] DATE CREATED AUTHOR AUTHOR'S ORGANIZ ATION 05/08/2025 [facility] FOR RECORDS PERTAINING TO PATIENTS WHO ARE OR HAVE BEEN ENROLLED IN A CHEMICAL DEPENDENCY/SUBSTANCEABUSE PROGRAM, SOME INFORMATION MAY BE OMITTED. This clinical summary was aggregated from multiple sources. Caution should be exercised in using it in the provision of clinical care. This summary normalizes information from multiple sources, and as a consequence, information in this document may materially change the coding, format and clinical context of patient data. In addition, data may be omitted in some cases. CLINICAL DECISIONS SHOULD BE BASED ON THE PRIMARY CLINICAL RECORDS. [facility]. provides no warranty or guarantee of the accuracy or completeness of information in this document.
== END | disposition home or self-care (01) ==
PROVIDERS: Referring Provider Surgery; Visit Provider Surgery
DX: C18.9 Malignant neoplasm of colon, unspecified (principal)
CPT/HCPCS: 78815; A9552